=== PATIENT | male | born 1985 | race Two or more races ===

== ENCOUNTER 2024-10-21 17:46 | Inpatient (IN) | payer MEDICAID, OTHER ==
[~2024-10-21] VITALS: Ht 180.3 cm; Wt 71.4 kg
[2024-10-21] MEDS ORDERED: VANCOMYCIN PER PHARMACY 0 MG IV SCH ×2 (18:30→20:00)
[2024-10-21] MEDS: PIPERACILLIN-TAZOB 3.375GM 100 ML IV ONE (18:34)
[2024-10-21 19:00] LABS: Basophils # (auto) 0 10 ^3/uL (0-0.2); Eosinophils # (auto) 0.2 10 ^3/uL (0-0.8); Lymphocytes % (auto) 20.8 % (10.0-50.0); Platelet Count (auto) 349 10^3/uL (140-450)
[2024-10-21 19:02] LABS: Basophils % (auto) 0.4 % (0.0-2.0); Eosinophils % (auto) 1.6 % (0.0-7.0); Hematocrit 42.7 % (41.0-53.0); Lymphocytes # (auto) 2.2 10 ^3/uL (0.4-5.4); Mean Corpuscular Hemoglobin 26.9 pg (28.0-32.0); Mean Corpuscular Hgb Conc. 32.8 g/dL (32.0-36.0); Monocytes % (auto) 9.7 % (0.0-12.0); Neutrophils % (auto) 67.5 % (37.0-80.0); Red Cell Distribution Width 17.1 % (11.8-14.3); White Blood Cell 10.4 10^3/uL (4.4-10.8)
--- NOTE | 2024-10-21 19:20 | ED.PDOC ---
History of Present Illness(SKN HPI Comments DEEPTHI: HPI: Poor Historian. 39-year-old male presents to the emergency department for evaluation of three day history of a left medial upper thigh abscess that e xtends to his left buttock area and perineal area. There is noted some purulent oozing and discharge in the side. The area is firm and tender to palpation and indurated. Past Medcial History: Skin abscess Past Surgical History: Denies any Tobacco abuse REVIEW OF SYSTEMS: CONSTITUTIONAL: Denies acute: fever, diaphoresis, chills, generalized weakness. HEAD: Denies acute: headache, photophobia Eyes: Denies acute: Double vision, vision loss, eye pain, eye discharge. EARS: Denies acute: tinnitus, hearing loss, ear discharge, ear pain, THROAT: Denies acute: sore throat, swelling, difficulty swallowing , pain with swallowin g, change in voice. NECK: Denies acute: neck pain, neck swelling, stiff neck. HEART: Denies acute : chest pain, palpitations, LUNGS: Denies acute: SOB, wheezing, cough, hemoptysis ABDOMEN: Denies acute: abdominal pain, Nausea, Vomiting, diarrhea, melena , hematemesis, hematochezia SKIN: Denies acute: rash, itchiness. EXTREMITIES: Denies acute: calf pain, numbness, tingling, weakness, denies pain in extremity. Denies acute: Low back pain. Neuro: Denies acute: focal neurological deficit, motor or sensory focal neurological deficit, tremors, seizure like activity, confusion, dizziness, change in mental status, loss of bowel or bladder function, cauda equina like symptoms. : Denies acute: dysuria, hematuria, flank pain, increase in urinary frequency. PSYCH: Denies acute: hallucination, suicidal ideation, homicidal ideation. PHYSICAL EXAM: General: no acute distress, awake and alert. Head: normocephalic, atraumatic. Neck: supple, trachea is midline, no swelling. Throat: Normal phonation. Eyes:, no erythema, no purulent discharge, no proptosis, no icterus. Heart: regular rate, regular rhythm, no significant murmur appreciated. Lungs: no apparent respiratory distress, Able to speak in full sentences. No wheezing, no rhonchi, no crackles. No stridors Clear to auscultation bilaterally. Abdomen: non tender to palpation, non distended, soft, no guarding, no rebound, + bowel sounds. Evaluation of the groin area with the abscesses. There is noted left medial thigh abscess as mentioned in the HPI that is tender to palpation and swollen with some oozing of purulent content. The firm induration extends to the left perineal area and into the buttock region. Normal-appearing external male genitalia circumcised. Neuro: Awake, Alert, oriented to name, self, situation, follows commands GCS=15. Speech is normal. Skin: no petechia, no purpura, no cyanosis, non-pale, not jaundice. Lower extremities: --no - Pitting edema no deformity, no focal swelling, no calf TTP. Makes eye contact. moves all four extremities. Face: no apparent facial droop. Ambulating in the ED independently. Chief Complaint: Wound Check Time Seen by MD: 17:59 History of Present Illness: Nurses Notes, Medications, Allergies Allergies: Coded Allergies: NO KNOWN ALLERGIES (Unverified , 10/21/24) Home Meds Active Scripts Acetaminophen (Acetaminophen) 325 Mg Tab, 650 MG PO Q6HP PRN for 10 Days, #80 TAB Prov:MIGUEL ÁNGEL FRANCES RESIDENT 10/27/24 Information Source: Patient Mode of Arrival: Ambulatory Past Medical History PAST MEDICAL HISTORY: Denies Surgical History: Denies all surgeries Family History Family History: Unknown Social History Smoker: Non-Smoker Alcohol: Denies ETOH Use Drugs: Denies Drug Use Lives In: Home Was a procedure done? Was a procedure done?: No Differential Diagnosis (INTG) Abscess: Abscess, Bacteremia, Cellulitis, Erysipelas, Felon, Gas Gangrene X-Ray, Labs, Meds, VS Vital Signs Date Time Temp Pulse Resp B/P (MAP) Pulse Ox O2 Delivery O2 Flow Rate FiO2 10/21/24 18:39 Room Air* 0 21 10/21/24 18:38 98.2 99 17 135/81 (99) 99 98.2 10/21/24 18:00 98.2 100 16 135/81 (99) 97 Lab Test 10/21/24 18:36 Range/Units White Blood Count 10.4 4.4-10.8 10^3/uL Red Blood Count 5.20 4.5-5.90 10^6/uL Hemoglobin 14.0 13.5-17.5 g/dL Hematocrit 42.7 41.0-53.0 % Mean Corpuscular Volume 82.0 80.0-100.0 fL Mean Corpuscular Hemoglobin 26.9 L 28.0-32.0 pg Mean Corpuscular Hemoglobin Concent 32.8 32.0-36.0 g/dL Red Cell Distribution Width 17.1 H 11.8-14.3 % Platelet Count 349 140-450 10^3/uL Mean Platelet Volume 7.6 6.9-10.8 fL Neutrophils (%) (Auto) 67.5 37.0-80.0 % Lymphocytes (%) (Auto) 20.8 10.0-50.0 % Monocytes (%) (Auto) 9.7 0.0-12.0 % Eosinophils (%) (Auto) 1.6 0.0-7.0 % Basophils (%) (Auto) 0.4 0.0-2.0 % Neutrophils # (Auto) 7.0 1.6-8.6 10 ^3/uL Lymphocytes # (Auto) 2.2 0.4-5.4 10 ^3/uL Monocytes # (Auto) 1.0 0-1.3 10 ^3/uL Eosinophils # (Auto) 0.2 0-0.8 10 ^3/uL Basophils # (Auto) 0 0-0.2 10 ^3/uL Nucleated Red Blood Cells 0.0 % Prothrombin Time 11.0 9.3-11.8 sec Prothrombin Time INR 1.04 0.9-1.15 Activated Partial Thromboplast Time 27.3 24.5-34.5 SEC Sodium Level 140 136-145 mmol/L Potassium Level 3.4 L 3.5-5.1 mmol/L Chloride Level 105 98-107 mmol/L Carbon Dioxide Level 27 20-31 mmol/L Anion Gap 8 5-15 Blood Urea Nitrogen < 5 L 9-23 mg/dL Creatinine 0.88 0.700-1.30 mg/dL Glomerular Filtration Rate Calc 114 >90 mL/min BUN/Creatinine Ratio 5.7 L 10.0-20.0 Serum Glucose 101 74-106 mg/dL Lactic Acid Level 1.3 0.4-2.0 mmol/L Calcium Level 9.5 8.7-10.4 mg/dL Total Bilirubin 0.5 0.2-1.0 mg/dL Aspartate Amino Transferase (AST) 14 13-40 U/L Alanine Aminotransferase (ALT) 16 7-40 U/L Alkaline Phosphatase 95 46-116 U/L Total Protein 7.2 5.7-8.2 g/dL Albumin 4.2 3.2-4.8 g/dL Hepatitis B Surface Antigen Negative Negative Hepatitis C Antibody Negative Negative Microbiology Date/Time Source Procedure Growth Status 10/21/24 18:36 Blood Blood Culture - Final NO GROWTH AFTER 5 DAYS OF INCUBATION. Complete 10/21/24 18:36 Blood Blood Culture - Final NO GROWTH AFTER 5 DAYS OF INCUBATION. Complete [facility] [id number] [address] Ph: [phone] DIAGNOSTIC IMAGING Diagnostic Imaging Report : [id number] Signed PATIENT: INGRID LACEY ACCT: [id number] UNIT: [id number] : 1985 LOC: ER ROOM / BED: / AGE / SEX: 39 / M ADM STATUS: REG ER SERVICE 1800 ORDERING PHYSICIAN: CHIOMA EM DO PROCEDURE(s): PELCT - PELVIS WITH CONTRAST ONLY REASON: L medial thight/perineal abscess. ORDER NUMBER(s): [id number], ACCESSION NUMBER(s): [id number] Exam: CT PELVIS WITH CONTRAST ONLY History: L medial thight/perineal abscess. Comparison Study: None available at time of dictation. Technique: Multidetector CT of the pelvis was performed from iliac crests to pubic symphysis after the administration of intravenous contrast was administered during this examination. Portal venous imaging was obtained. Axial, coronal and sagittal multiplanar reformats were performed by the technologist on a separate workstation. Radiation Dose : CT Dose: CTDI volume is 18.03 mGy. Dose-length product is 841.46 mGy*cm Findings: Visualized bowel: No bowel wall thickening or dilatation. Ascites: Absent Lymphadenopathy: No pelvic or mesenteric lymphadenopathy. Vasculature: The visualized abdominal aorta is normal in size and caliber. Abdominal and pelvic vessels demonstrate normal enhancement. Pelvic Organs: Unremarkable Musculoskeletal: No acute osseous abnormality. Prominent lytic lesion in the greater trochanter of the right femur measuring 4.3 x 3.2 cm Bladder: Unremarkable Soft tissues: Inflammatory changes in the left gluteal tissue medially of the intergluteal fold with gas consistent with necrotizing fasciitis. IMPRESSION: 1. 4.3 x 3.2 cm lytic process in the greater trochanter of the proximal right femur suggestive of metastatic disease. 2. Inflammatory changes in the medial aspect of the left intergluteal fold with gas in the soft tissues suggesting necrotizing fasciitis. CRITICAL FINDINGS Critical Result: NECROTIZING FASCIITIS IN THE LEFT INTERGLUTEAL FOLD. Findings discussed with CHIOMA Escobar at 10/21/2024 08:01 PM, and acknowledged receipt and understanding of the findings. All CT scans at this medical facility are performed using dose modulation techniques as appropriate to a performed exam including the following: Automated exposure control was utilized; adjustment of the MA and/or KV according to patient size; and use of iterative reconstruction technique. ATED BY: ALF HOGAN Jr., DO DICTATED DATE/TIME: 10/21/242005 SIGNED BY: ALF HOGAN Jr., SIGNED DATE/TIME: 10/21/242005 CC: Time of 1ST Reevaluation: 20:08 (I just received a phone call from the radiologist of a critical finding on CT scan. Necrotizing fasciitis of the medial left thigh and medial gluteal fold. General surgery was consulted stat.) Reevaluation 1ST: Unchanged Time of 2ND Reevaluation: 20:16 (The case was discussed with the general surgery team (HPI, physical exam, labs and diagnostic tests that were available at the time of disposition, ED course, treatment plan) on the phone. They agreed to come evaluate this patient in the ED in approximately [address] He) Patient Education/Counseling: Diagnosis, Treatment Family Education/Counseling: No Family Present Comments Patient presented with the above HPI. Abscess workup was initiated. patient was found with the above mentioned diagnosis. the following medications were ordered: Acetaminophen, Zofran, restoril, hydrocodone, vancomycin, omnipaque, piperacillin the following tests were ordered: troponin, EKG, CXR, UA, lactic acid, CMP, CBC, BMP, PTPTT Patient ED course and VS have been stabilized. Patient has been reassessed in the ED and remained in a stable condition. Pertinent incidental findings were discussed with the patient and/or family. Patient/family voices understanding and is agreeable with plan. Patient has been observed in the ED adequate length of time to insure improvement/stability. general sx was consulted. Escalation of care considered: Consideration of escalation to observation or admission Patient was ADMITTED to the medicine team for further evaluation and treatment of their presentation. All the reports of any imaging studies that were ordered by myself were reviewed by myself. Departure 1 Departure Time of Disposition: 19:31 Impression: Primary Impression: Thigh abscess Additional Impressions: Perineal abscess Necrotizing fasciitis Disposition: ADMITTED INPATIENT Admit to: Tele Condition: Guarded e-Prescriptions Acetaminophen (Acetaminophen) 325 Mg Tab 650 MG PO Q6HP PRN for 10 Days, #80 TAB Prov: MIGUEL ÁNGEL FRANCES RESIDENT 10/27/24 Discharged With: Self Critical Care Note Critical Care Time?: Yes (55 min-critical care time only) I personally scribed for CHIOMA EM DO ([email or web address]) on 10/21/24 at 20:48. Electronically submitted by Nick Peoples ([email or web address]). I personally scribed for CHIOMA EM DO ([email or web address]) on 10/22/24 at 00:18. Electronically submitted by Nick Peoples ([email or web address]). CHIOMA EM DO Oct 21, 2024 19:20
[2024-10-21 19:28] LABS: Alanine Aminotransferase 16 U/L (7-40); Albumin 4.2 g/dL (3.2-4.8); Alkaline Phosphatase 95 U/L (46-116); Anion Gap 8 (5-15); Aspartate Aminotransferase 14 U/L (13-40); Bilirubin, Total 0.5 mg/dL (0.2-1.0); Calcium 9.5 mg/dL (8.7-10.4); Carbon Dioxide 27 mmol/L (20-31); Chloride 105 mmol/L (98-107); Glucose 101 mg/dL (74-106); Sodium 140 mmol/L (136-145)
[2024-10-21 19:29] LABS: Total Protein 7.2 g/dL (5.7-8.2)
[2024-10-21] MEDS: IOHEXOL 300 MG/ML 100ML BOTTLE IJ ONE (19:33)
[2024-10-21 19:43] LABS: Potassium 3.4 mmol/L (3.5-5.1)
[2024-10-21 19:48] LABS: BUN/Creatinine Ratio 5.7 (10.0-20.0); Blood Urea Nitrogen < 5 mg/dL (9-23)
[2024-10-21] MEDS ORDERED: ACETAMINOPHEN 325 MG TAB PO PRN (20:00)
[2024-10-21] MEDS ORDERED: TEMAZEPAM 15 MG CAP PO PRN (20:00)
--- NOTE | 2024-10-21 20:09 | DVH ---
Exam: CT PELVIS WITH CONTRAST ONLY History: L medial thight/perineal abscess. Comparison Study: None available at time of dictation. Technique: Multidetector CT of the pelvis was performed from iliac crests to pubic symphysis after th e administration of intravenous contrast was administered during this examination. Portal venous imag ing was obtained. Axial, coronal and sagittal multiplanar reformats were performed by the technWatchfinderis t on a separate workstation. Radiation Dose : CT Dose: CTDI volume is 18.03 mGy. Dose-length product is 841.46 mGy*cm Findings: Visualized bowel: No bowel wall thickening or dilatation. Ascites: Absent Lymphadenopathy: No pelvic or mesenteric lymphadenopathy. Vasculature: The visualized abdominal aorta is normal in size and caliber. Abdominal and pelvic vesse ls demonstrate normal enhancement. Pelvic Organs: Unremarkable Musculoskeletal: No acute osseous abnormality. Prominent lytic lesion in the greater trochanter of th e right femur measuring 4.3 x 3.2 cm Bladder: Unremarkable Soft tissues: Inflammatory changes in the left gluteal tissue medially of the intergluteal fold with gas consistent with necrotizing fasciitis. IMPRESSION: 1. 4.3 x 3.2 cm lytic process in the greater trochanter of the proximal right femur suggestive of met astatic disease. 2. Inflammatory changes in the medial aspect of the left intergluteal fold with gas in the soft tissu es suggesting necrotizing fasciitis. CRITICAL FINDINGS Critical Result: NECROTIZING FASCIITIS IN THE LEFT INTERGLUTEAL FOLD. Findings discussed with CHIOMA Escobar at 10/21/2024 08:01 PM, and acknowledged receipt and understa nding of the findings. All CT scans at this medical facility are performed using dose modulation techniques as appropriate t o a performed exam including the following: Automated exposure control was utilized; adjustment of th e MA and/or KV according to patient size; and use of iterative reconstruction technique.
[2024-10-21 20:51] LABS: INR 1.04 (0.9-1.15); Partial Thromboplastin Time 27.3 SEC (24.5-34.5)
--- NOTE | 2024-10-21 21:16 | DVHINCON2 ---
Consultation - Surgical Date Seen: Oct 21, 2024 Referring Physician Referring Physician ER Reason for Consultation left sonny anal abscess History of Present Illness History of Present Illness 39-year-old male presents to the emergency department for evaluation of three day history of a left medial upper thigh abscess that extends to his left buttock area and perineal area. Patient states over the last 24 hours has started to drain. In he had some symptomatic relief with that. He has had this happened in the past which required I and D. he denies any anal sex. He denies any constipation he does have some diarrhea occasio edward. No diabetes. he has a tobacco smoker. Past Medical/Surgical History Past Medical/Surgical History History of perirectal perianal abscess Family and Social History Family and Social History Smokes cigars daily. Occasional alcohol use Allergies and medications Allergies: Coded Allergies: NO KNOWN ALLERGIES (Unverified , 10/21/24) Review of systems Review of Systems: HEENT:Normal, CVS:Normal, RESPIRATORY:Normal, GI:Normal, :Normal, MSK:Normal, NEURO:Normal Examination Vital signs Vital Signs Date Time Temp Pulse Resp B/P (MAP) Pulse Ox O2 Delivery O2 Flow Rate FiO2 10/21/24 18:39 Room Air* 0 21 10/21/24 18:38 98.2 99 17 135/81 (99) 99 98.2 Medications Current Medications Medications (Trade) Dose Ordered Sig/Julio Route PRN Reason Start Time Stop Time Status Last Admin Vancomycin HCl 0 ml @ 0 mls/hr UD IV 10/21/24 18:30 10/21/24 20:40 DC Vancomycin HCl 0 ml @ 0 mls/hr UD IV 10/21/24 20:00 Acetaminophen/ Hydrocodone Bitart ([place] 5/325MG Tab) 1 tab Q4HP PRN PO MODERATE PAIN (4-6 PAIN SCALE) 10/21/24 20:00 Temazepam (Restoril) 15 mg QHSP PRN PO FOR INSOMNIA 10/21/24 20:00 Ondansetron HCl (Zofran) 4 mg Q4HP PRN IV NAUSEA / VOMITING 10/21/24 20:00 Acetaminophen (Tylenol Tablet) 650 mg Q6HP PRN PO PAIN SCALE 1-3 OR TEMP>100.4 10/21/24 20:00 Laboratory Labs Test 10/21/24 18:36 Range/Units White Blood Count 10.4 4.4-10.8 10^3/uL Red Blood Count 5.20 4.5-5.90 10^6/uL Hemoglobin 14.0 13.5-17.5 g/dL Hematocrit 42.7 41.0-53.0 % Mean Corpuscular Volume 82.0 80.0-100.0 fL Mean Corpuscular Hemoglobin 26.9 L 28.0-32.0 pg Mean Corpuscular Hemoglobin Concent 32.8 32.0-36.0 g/dL Red Cell Distribution Width 17.1 H 11.8-14.3 % Platelet Count 349 140-450 10^3/uL Mean Platelet Volume 7.6 6.9-10.8 fL Neutrophils (%) (Auto) 67.5 37.0-80.0 % Lymphocytes (%) (Auto) 20.8 10.0-50.0 % Monocytes (%) (Auto) 9.7 0.0-12.0 % Eosinophils (%) (Auto) 1.6 0.0-7.0 % Basophils (%) (Auto) 0.4 0.0-2.0 % Neutrophils # (Auto) 7.0 1.6-8.6 10 ^3/uL Lymphocytes # (Auto) 2.2 0.4-5.4 10 ^3/uL Monocytes # (Auto) 1.0 0-1.3 10 ^3/uL Eosinophils # (Auto) 0.2 0-0.8 10 ^3/uL Basophils # (Auto) 0 0-0.2 10 ^3/uL Nucleated Red Blood Cells 0.0 % Prothrombin Time 11.0 9.3-11.8 sec Prothrombin Time INR 1.04 0.9-1.15 Activated Partial Thromboplast Time 27.3 24.5-34.5 SEC Sodium Level 140 136-145 mmol/L Potassium Level 3.4 L 3.5-5.1 mmol/L Chloride Level 105 98-107 mmol/L Carbon Dioxide Level 27 20-31 mmol/L Anion Gap 8 5-15 Blood Urea Nitrogen < 5 L 9-23 mg/dL Creatinine 0.88 0.700-1.30 mg/dL Glomerular Filtration Rate Calc 114 >90 mL/min BUN/Creatinine Ratio 5.7 L 10.0-20.0 Serum Glucose 101 74-106 mg/dL Lactic Acid Level 1.3 0.4-2.0 mmol/L Calcium Level 9.5 8.7-10.4 mg/dL Total Bilirubin 0.5 0.2-1.0 mg/dL Aspartate Amino Transferase (AST) 14 13-40 U/L Alanine Aminotransferase (ALT) 16 7-40 U/L Alkaline Phosphatase 95 46-116 U/L Total Protein 7.2 5.7-8.2 g/dL Albumin 4.2 3.2-4.8 g/dL History: L medial thight/perineal abscess. Comparison Study: None available at time of dictation. Technique: Multidetector CT of the pelvis was performed from iliac crests to pubic symphysis after the administration of intravenous contrast was administered during this examination. Portal venous imaging was obtained. Axial, coronal and sagittal multiplanar reformats were performed by the technologist on a separate workstation. Radiation Dose : CT Dose: CTDI volume is 18.03 mGy. Dose-length product is 841.46 mGy*cm Findings: Visualized bowel: No bowel wall thickening or dilatation. Ascites: Absent Lymphadenopathy: No pelvic or mesenteric lymphadenopathy. Vasculature: The visualized abdominal aorta is normal in size and caliber. Abdominal and pelvic vessels demonstrate normal enhancement. Pelvic Organs: Unremarkable Musculoskeletal: No acute osseous abnormality. Prominent lytic lesion in the greater trochanter of the right femur measuring 4.3 x 3.2 cm Bladder: Unremarkable Soft tissues: Inflammatory changes in the left gluteal tissue medially of the intergluteal fold with gas consistent with necrotizing fasciitis. IMPRESSION: 1. 4.3 x 3.2 cm lytic process in the greater trochanter of the proximal right femur suggestive of metastatic disease. 2. Inflammatory changes in the medial aspect of the left intergluteal fold with gas in the soft tissues suggesting necrotizing fasciitis. CRITICAL FINDINGS Critical Result: NECROTIZING FASCIITIS IN THE LEFT INTERGLUTEAL FOLD. Findings discussed with CHIOMA Escobar at 10/21/2024 08:01 PM, and acknowledged receipt and understanding of the findings. All CT scans at this medical facility are performed using dose modulation techniques as appropriate to a performed exam including the following: Automated exposure control was utilized; adjustment of the MA and/or KV according to patie nt size; and use of iterative reconstruction technique. Examination: GENERAL:Normal, HEENT:Normal, NECK:Normal, LUNGS:Normal, CVS:Normal, ABDOMEN:Normal, MSK:Normal, MSK:Abnormal (Left gluteal/perianal area draining indurated area. Tender to the touch. Rectal exam refused), SKIN:Normal, NEURO:Normal, :Normal Problem List/Assessment/Plan Problems: (1) Perineal abscess (2) Thigh abscess Assessment and Plan 39-year-old male with left perineal abscess draining. NPO IV antibiotics Incision and drainage October 22, 2024. Plan discussed with Plan discussed with: Patient Visit Coding Surgery Date of Service if different f: Oct 21, 2024 Billing Provider: KAI TYSON Jr., MD Surgery Visit Codes: 15546 - INP CONSULT <80 MIN KAI TYSON Jr., MD Oct 21, 2024 21:16
[2024-10-21 21:36] VITALS: BP 130/80; PULSE 80; RESP 18; TEMP 98.3; O2SAT 100
[2024-10-22] MEDS: VANCOMYCIN 1.5GM/300ML 300 ML IV ONE (00:12)
--- NOTE | 2024-10-22 04:16 | DVHHP2 ---
History of Present Illness Reason for Visit: Abscess History of Present Illness 39-year-old male presents for evaluation of abscess. Patient reports a three day history of noticing an abscess to his left upper thigh/perianal. He reports that yesterday he felt the abscess pop and has been having purulent discharge since then. Denies fever or chills. He reports having a history of this in the past and required an I and D. denies any other acute complaints at the moment. Past Medical History Denies Past Surgical History Denies Family History Noncontributory Smoke: <1 pack per day ALCOHOL: occassional Drugs: None Lives: with Family Review of Systems Review of Systems Review of systems are currently negative otherwise addressed in HPI. Allergies: Coded Allergies: NO KNOWN ALLERGIES (Unverified , 10/21/24) Medications Current Medications Medications Dose Ordered Sig/Julio Route Start Time Stop Time Status Last Admin Dose Admin Vancomycin HCl 0 ml @ 0 mls/hr UD IV 10/21/24 20:00 Acetaminophen/ Hydrocodone Bitart 1 tab Q4HP PRN PO 10/21/24 20:00 Temazepam 15 mg QHSP PRN PO 10/21/24 20:00 Ondansetron HCl 4 mg Q4HP PRN IV 10/21/24 20:00 Acetaminophen 650 mg Q6HP PRN PO 10/21/24 20:00 Exam Vital Signs Vital Signs Date Time Temp Pulse Resp B/P (MAP) Pulse Ox O2 Delivery O2 Flow Rate FiO2 10/21/24 21:36 80 18 100 Room Air* 0 21 10/21/24 21:36 98.3 130/80 (97) 98.3 Exam Gen: 39-year-old male in mild distress Skin: Warm, dry, normal color and texture, no rash. HEENT: Normocephalic atraumatic, mucous membranes moist and pink. Neck: Cervical and supraclavicular nodes normal without enlargement, trachea is midline, thyroid gland is normal without masses. Pulmonary: Clear to auscultation and percussion bilaterally. Cardiac: Regular rate and rhythm. No murmur Abdomen: Soft, nontender, nondistended, bowel sounds present all 4 quadrants, no guarding, no rigidity, no organomegaly. Extremities: No cyanosis, clubbing, left upper thigh/perianal abscess Neuro: Cranial nerves II through XII grossly intact, normal affect and speech, no focal motor deficits. Labs/Xrays ORDERING PHYSICIAN: CHIOMA EM DO PROCEDURE(s): PELCT - PELVIS WITH CONTRAST ONLY REASON: L medial thight/perineal abscess. ORDER NUMBER(s): [id number], ACCESSION NUMBER(s): [id number] Exam: CT PELVIS WITH CONTRAST ONLY History: L medial thight/perineal abscess. Comparison Study: None available at time of dictation. Technique: Multidetector CT of the pelvis was performed from iliac crests to pubic symphysis after the administration of intravenous contrast was administered during this examination. Portal venous imaging was obtained. Axial, coronal and sagittal multiplanar reformats were performed by the technologist on a separate workstation. Radiation Dose : CT Dose: CTDI volume is 18.03 mGy. Dose-length product is 841.46 mGy*cm Findings: Visualized bowel: No bowel wall thickening or dilatation. Ascites: Absent Lymphadenopathy: No pelvic or mesenteric lymphadenopathy. Vasculature: The visualized abdominal aorta is normal in size and caliber. Abdominal and pelvic vessels demonstrate normal enhancement. Pelvic Organs: Unremarkable Musculoskeletal: No acute osseous abnormality. Prominent lytic lesion in the greater trochanter of the right femur measuring 4.3 x 3.2 cm Bladder: Unremarkable Soft tissues: Inflammatory changes in the left gluteal tissue medially of the in tergluteal fold with gas consistent with necrotizing fasciitis. IMPRESSION: 1. 4.3 x 3.2 cm lytic process in the greater trochanter of the proximal right femur suggestive of metastatic disease. 2. Inflammatory changes in the medial aspect of the left intergluteal fold with gas in the soft tissues suggesting necrotizing fasciitis. CRITICAL FINDINGS Critical Result: NECROTIZING FASCIITIS IN THE LEFT INTERGLUTEAL FOLD. Findings discussed with CHIOMA Escobar at 10/21/2024 08:01 PM, and acknowledged receipt and understanding of the findings. All CT scans at this medical facility are performed using dose modulation techniques as appropriate to a performed exam including the following: Automated exposure control was utilized; adjustment of the MA and/or KV according to patient size; and use of iterative reconstruction technique. Labs Test 10/21/24 18:36 Range/Units White Blood Count 10.4 4.4-10.8 10^3/uL Red Blood Count 5.20 4.5-5.90 10^6/uL Hemoglobin 14.0 13.5-17.5 g/dL Hematocrit 42.7 41.0-53.0 % Mean Corpuscular Volume 82.0 80.0-100.0 fL Mean Corpuscular Hemoglobin 26.9 L 28.0-32.0 pg Mean Corpuscular Hemoglobin Concent 32.8 32.0-36.0 g/dL Red Cell Distribution Width 17.1 H 11.8-14.3 % Platelet Count 349 140-450 10^3/uL Mean Platelet Volume 7.6 6.9-10.8 fL Neutrophils (%) (Auto) 67.5 37.0-80.0 % Lymphocytes (%) (Auto) 20.8 10.0-50.0 % Monocytes (%) (Auto) 9.7 0.0-12.0 % Eosinophils (%) (Auto) 1.6 0.0-7.0 % Basophils (%) (Auto) 0.4 0.0-2.0 % Neutrophils # (Auto) 7.0 1.6-8.6 10 ^3/uL Lymphocytes # (Auto) 2.2 0.4-5.4 10 ^3/uL Monocytes # (Auto) 1.0 0-1.3 10 ^3/uL Eosinophils # (Auto) 0.2 0-0.8 10 ^3/uL Basophils # (Auto) 0 0-0.2 10 ^3/uL Nucleated Red Blood Cells 0.0 % Prothrombin Time 11.0 9.3-11.8 sec Prothrombin Time INR 1.04 0.9-1.15 Activated Partial Thromboplast Time 27.3 24.5-34.5 SEC Sodium Level 140 136-145 mmol/L Potassium Level 3.4 L 3.5-5.1 mmol/L Chloride Level 105 98-107 mmol/L Carbon Dioxide Level 27 20-31 mmol/L Anion Gap 8 5-15 Blood Urea Nitrogen < 5 L 9-23 mg/dL Creatinine 0.88 0.700-1.30 mg/dL Glomerular Filtration Rate Calc 114 >90 mL/min BUN/Creatinine Ratio 5.7 L 10.0-20.0 Serum Glucose 101 74-106 mg/dL Lactic Acid Level 1.3 0.4-2.0 mmol/L Calcium Level 9.5 8.7-10.4 mg/dL Total Bilirubin 0.5 0.2-1.0 mg/dL Aspartate Amino Transferase (AST) 14 13-40 U/L Alanine Aminotransferase (ALT) 16 7-40 U/L Alkaline Phosphatase 95 46-116 U/L Total Protein 7.2 5.7-8.2 g/dL Albumin 4.2 3.2-4.8 g/dL Assessment/Plan Assessment/Plan Assessment Left perianal abscess Plan Admit the patient to [facility] to the hospitalist NPO Surgical consultation Vancomycin Pain management Continue treatment per orders. Plan discussed with: Patient My Orders Orders - KATERIN CAMARENA Procedure Category Date Status Time Vancomycin Per PHA 10/21/24 In Process Pharmacy 20:00 Basic Metabolic Panel LAB 10/22/24 Logged 04:00 Admit ADMIT 10/21/24 Transmitted 19:47 Hydrocodone-Acet PHA 10/21/24 In Process 5/325mg Tab ([place] 20:00 Temazepam (Restoril) PHA 10/21/24 In Process 20:00 Ondansetron Hcl PHA 10/21/24 In Process (Zofran) 20:00 Complete Blood Count LAB 10/22/24 Logged 04:00 Condition: Stable ALESSANDRO 10/21/24 In Process 19:47 Acetaminophen Tablet PHA 10/21/24 In Process (Tylenol Tablet) 20:00 Bedrest With Bathroom ALESSANDRO 10/21/24 In Process Privileg 19:47 * Surgical Consult CONS 10/21/24 Transmitted Education - Smoking ALESSANDRO 10/21/24 In Process Cessation 23:17 * Smoking Cessation CONS 10/21/24 Transmitted Consult 23:17 Hepatitis B Surface LAB 10/21/24 In Process Antigen 23:17 Hepatitis C Antibody LAB 10/21/24 In Process 23:17 Date of Service: Oct 21, 2024 Billing Provider: KATERIN CAMARENA Common Visit Codes: [id number] INP/OBS CARE (MOD) KATERIN CAMARENA Oct 22, 2024 04:16
[2024-10-22 06:23] LABS: Basophils # (auto) 0 10 ^3/uL (0-0.2); Basophils % (auto) 0.6 % (0.0-2.0); Eosinophils # (auto) 0.2 10 ^3/uL (0-0.8); Eosinophils % (auto) 2.6 % (0.0-7.0); Hematocrit 42.3 % (41.0-53.0); Hemoglobin 14.1 g/dL (13.5-17.5); Lymphocytes % (auto) 26.9 % (10.0-50.0); Mean Corpuscular Hemoglobin 27.2 pg (28.0-32.0); Mean Corpuscular Hgb Conc. 33.3 g/dL (32.0-36.0); Mean Corpuscular Volume 81.5 fL (80.0-100.0); Monocytes # (auto) 1.2 10 ^3/uL (0-1.3); Monocytes % (auto) 16.7 % (0.0-12.0); Neutrophils # (auto) 3.9 10 ^3/uL (1.6-8.6); Neutrophils % (auto) 53.2 % (37.0-80.0); Nucleated Red Blood Cells % 0.1 %; Platelet Count (auto) 311 10^3/uL (140-450); Red Blood Cells 5.19 10^6/uL (4.5-5.90); Red Cell Distribution Width 17.1 % (11.8-14.3); White Blood Cell 7.4 10^3/uL (4.4-10.8)
[2024-10-22 06:27] LABS: Potassium 3.7 mmol/L (3.5-5.1); Sodium 139 mmol/L (136-145)
[2024-10-22 06:28] LABS: Anion Gap 3 (5-15); Calcium 9.5 mg/dL (8.7-10.4); Carbon Dioxide 28 mmol/L (20-31)
[2024-10-22 06:33] LABS: Glucose 94 mg/dL (74-106)
[2024-10-22 06:42] LABS: Blood Urea Nitrogen 6 mg/dL (9-23); Chloride 108 mmol/L (98-107)
[2024-10-22] MEDS: ceFAZolin 2 GM/D5W100ml 100 ML IV ONE (08:15)
[2024-10-22] MEDS ORDERED: PROPOFOL 10 MG/ML 20 ML IV ONE (08:42)
[2024-10-22] MEDS ORDERED: LIDOCAINE 1% INJ PF 5ML AMP ONE (09:04)
[2024-10-22] MEDS ORDERED: HYDROmorphone HCL 2 MG/ML VL/or syr ONE (09:14)
[2024-10-22] MEDS ORDERED: diphenhdrAMINE HCL 50 MG/1 ML VL ONE (09:19)
[2024-10-22] MEDS ORDERED: KETOROLAC TROMETH 30 MG/ML 1ML VIAL ONE (09:19)
[2024-10-22] MEDS ORDERED: ONDANSETRON HCL 4 MG/2 ML VIAL ONE (09:19)
[2024-10-22 09:39] VITALS: PULSE 72; RESP 9; O2SAT 100
--- NOTE | 2024-10-22 09:49 | DVHOP ---
DATE OF SURGERY: 10/22/2024 PREOPERATIVE DIAGNOSIS: Perirectal and thigh abscess. POSTOPERATIVE DIAGNOSES: Perirectal and thigh abscess plus hidradenitis. PROCEDURE: Incision and drainage of multiple abscesses in the perianal skin, posterior upper thigh and buttock. The patient was presenting with an abscess of several days' duration. DESCRIPTION OF PROCEDURE: On examination under anesthesia, he has evidence of hidradenitis suppurativa with extensive scarring of the perianal and posterior thigh's skin. Multiple acute abscesses were drained and pus was sent for cultures and sensitivities. The wounds were irrigated with pulse lavage and packed with iodoform gauze. The patient remained stable throughout the procedure, left the operating room following an accurate needle and sponge count. His Blanca was thoroughly informed at [phone]. On questioning the , she stated that he has been having recurring infections for several years. I explained to her that no definitive operation can be done while the acute infection, and that eventually if he would become a candidate for elective operation, would probably needs to be done by a plastic surgeon. MD PUMA Orr/ISIS TID: [id number] RECEIPT: [id number]
[2024-10-22] MEDS: BUPIVACAINE 0.5% P/F INJ 10 ML VIAL ONE (09:51)
[2024-10-22] MEDS ORDERED: VANCOMYCIN 1GM/250ML KIT 250 ML IV SCH (10:00)
[2024-10-22] MEDS ORDERED: MORPHINE SULFATE 4 MG/ML SYR/VIAL IV PRN (10:00)
[2024-10-22] MEDS ORDERED: HYDROmorphone HCL 2 MG/ML VL/or syr IV PRN ×2 (10:00)
[2024-10-22] MEDS ORDERED: MEROPENEM 1GM IVPB 50 ML IV ONE (10:45)
[2024-10-22] MEDS ORDERED: MEROPENEM 1GM IVPB 50 ML IV SCH (14:00)
[2024-10-22] MEDS: ONDANSETRON HCL 4 MG/2 ML VIAL IV ONE (14:08)
[2024-10-22] MEDS: LIDOCAINE W/ EPINEPHRINE 1% 20ML VIAL ONE (14:08)
--- NOTE | 2024-10-22 14:25 | DVHPNRES ---
Progress Note Date Seen: Oct 22, 2024 Resident Creating Document: MIGUEL ÁNGEL FRANCES RESIDENT Has the PT tested + for MRSA If YES, has PT been informed?: No Medical Necessity Reason Pt with a Central, PICC or Fol: No Subjective Review of Systems 39-year-old male presents for evaluation of abscess. Patient reports a three day history of noticing an abscess to his left upper thigh/perianal. He reports that yesterday he felt the abscess pop and has been having purulent discharge since then. Denies fever or chills. He reports having a history of this in the past and required an I and D. denies any other acute complaints at the moment. Objective vital signs Vital Sign Date Time Temp Pulse Resp B/P (MAP) Pulse Ox O2 Delivery O2 Flow Rate FiO2 10/22/24 13:09 70 15 135/71 (92) 97 10/22/24 10:59 Room Air 0 10/22/24 09:39 97.5 97.5 10/21/24 21:36 21 Total Intake and Output 10/21/24 10/21/24 10/22/24 15:00 23:00 07:00 Intake Total 0 ml Balance 0 ml medications Current Medications Medications Dose Ordered Sig/Julio Route Start Time Stop Time Status Last Admin Dose Admin Acetaminophen/ Hydrocodone Bitart 1 tab Q4HP PRN PO 10/21/24 20:00 Temazepam 15 mg QHSP PRN PO 10/21/24 20:00 Ondansetron HCl 4 mg Q4HP PRN IV 10/21/24 20:00 Acetaminophen 650 mg Q6HP PRN PO 10/21/24 20:00 Sodium Chloride 1,000 ml @ 100 mls/hr Q10H IV 10/22/24 10:45 Cefazolin Sodium 50 ml @ 100 mls/hr Q8HR IV 10/22/24 17:00 UNV Examination Gen: 39-year-old male in mild distress Skin: Warm, dry, normal color and texture, no rash. HEENT: Normocephalic atraumatic, mucous membranes moist and pink. Neck: Cervical and supraclavicular nodes normal without enlargement, trachea is midline, thyroid gland is normal without masses. Pulmonary: Clear to auscultation and percussion bilaterally. Cardiac: Regular rate and rhythm. No murmur Abdomen: Soft, nontender, nondistended, bowel sounds present all 4 quadrants, no guarding, no rigidity, no organomegaly. G/U wound covered without bleeding or supuration Extremities: No cyanosis, clubbing, left upper thigh/perianal abscess Neuro: Cranial nerves II through XII grossly intact, normal affect and speech, no focal motor deficits. laboratory and microbiology Laboratory Tests 10/22/24 05:52 Test 10/22/24 05:52 Range/Units Serum Glucose 94 74-106 mg/dL Problem List/Assessment/Plan Problem List/Assessment/Plan #Inflammatory changes in the medial aspect of the left intergluteal fold with gas in the soft tissues suggesting necrotizing fasciitis. #Perirectal and thigh abscess plus hidradenitis. #s/p Incision and drainage of multiple abscesses in the perianal skin, posterior upper thigh and buttock #4.3 x 3.2 cm lytic process in the greater trochanter of the proximal right femur suggestive of metastatic disease. Plan Regular diet Cefazolin per Surgery IV fluids 100 cc/h Pain control Pending surgery consult due to findings of lytic process Case discussed with Dr Brennan Time spent on care 23 min Plan discussed with: Patient, Other (rn) My Orders My Orders Orders - MIGUEL ÁNGEL FRANCES Procedure Category Date Status Time Sodium Chloride 0.9% PHA 10/22/24 In Process 10:45 Date of Service: Oct 22, 2024 Billing Provider: JONNATHAN BRENNAN MD Common Visit Codes: [id number] INP/OBS CARE(HIGH) MIGUEL ÁNGEL FRANCES RESIDENT Oct 22, 2024 14:25 JONNATHAN BRENNAN MD Oct 24, 2024 07:24
[2024-10-22 17:00] VITALS: BP_SYST 112; BP_SYST 120; BP_DIAS 52; BP_DIAS 70; PULSE 75; PULSE 87; RESP 18; TEMP 97.8; TEMP 97.9; O2SAT 97
[2024-10-22] MEDS: SODIUM CHLORIDE 0.9% 1,000 ML IV SCH (17:22)
[2024-10-22] MEDS: ceFAZolin 1GM/50ML 50 ML IV SCH (17:22)
[2024-10-22 20:10] VITALS: O2SAT 97
[2024-10-22 21:00] VITALS: BP 130/75; PULSE 93; RESP 19; TEMP 99.2; O2SAT 96
[2024-10-22 23:58] LABS: Urine Bacteria None Seen /hpf (None Seen)
[2024-10-23] VITALS (7 sets, daily range): BP systolic 124–156; BP diastolic 75–92; PULSE 70–84; RESP 18–20; TEMP 97.9–98.8; O2SAT 94–100
[2024-10-23 00:08] LABS: Urine Blood TRACE /uL (Negative); Urine Clarity Clear (Clear); Urine Color Yellow (Yellow); Urine Mucus FEW (None Seen); Urine Protein, UAD TRACE (Negative); Urine Specific Gravity 1.025 (1.001-1.035); Urine Squamous Epithelial Cell FEW /hpf (<5); Urine Urobilinogen Normal (Negative); Urine WBC 7 /HPF (0-3)
[2024-10-23] MEDS: HYDROcodone-ACET 5/325MG TAB PO PRN (05:41)
[2024-10-23 06:01] LABS: Basophils # (auto) 0.1 10 ^3/uL (0-0.2); Basophils % (auto) 0.6 % (0.0-2.0); Eosinophils # (auto) 0.2 10 ^3/uL (0-0.8); Eosinophils % (auto) 2.1 % (0.0-7.0); Hematocrit 40.2 % (41.0-53.0); Hemoglobin 13.1 g/dL (13.5-17.5); Lymphocytes # (auto) 2.4 10 ^3/uL (0.4-5.4); Lymphocytes % (auto) 28.4 % (10.0-50.0); Mean Corpuscular Hemoglobin 26.8 pg (28.0-32.0); Mean Corpuscular Hgb Conc. 32.7 g/dL (32.0-36.0); Mean Corpuscular Volume 81.9 fL (80.0-100.0); Monocytes # (auto) 0.9 10 ^3/uL (0-1.3); Monocytes % (auto) 11.1 % (0.0-12.0); Neutrophils # (auto) 4.9 10 ^3/uL (1.6-8.6); Neutrophils % (auto) 57.8 % (37.0-80.0); Platelet Count (auto) 306 10^3/uL (140-450); Red Blood Cells 4.91 10^6/uL (4.5-5.90); Red Cell Distribution Width 16.8 % (11.8-14.3); White Blood Cell 8.5 10^3/uL (4.4-10.8)
[2024-10-23 06:24] LABS: Alanine Aminotransferase 10 U/L (7-40); Albumin 3.4 g/dL (3.2-4.8); Alkaline Phosphatase 80 U/L (46-116); Anion Gap 6 (5-15); Carbon Dioxide 24 mmol/L (20-31); Glucose 89 mg/dL (74-106); Sodium 140 mmol/L (136-145)
[2024-10-23 06:25] LABS: Aspartate Aminotransferase 13 U/L (13-40); Bilirubin, Total 0.4 mg/dL (0.2-1.0); Blood Urea Nitrogen 6 mg/dL (9-23); Chloride 110 mmol/L (98-107)
[2024-10-23 09:27] LABS: Hepatitis B Surface Antigen Negative (Negative); Hepatitis C Antibody Negative (Negative)
--- NOTE | 2024-10-23 10:34 | DVHPN2 ---
Progress Note Date Seen: Oct 23, 2024 Has the PT tested + for MRSA If YES, has PT been informed?: No Medical Necessity Reason Pt with a Central, PICC or Fol: No Objective vital signs Vital Sign Date Time Temp Pulse Resp B/P (MAP) Pulse Ox O2 Delivery O2 Flow Rate FiO2 10/23/24 05:00 97.9 81 18 135/80 (98) 97 97.9 10/22/24 20:10 Room Air* 0 21 Total Intake and Output 10/22/24 10/22/24 10/23/24 15:00 23:00 07:00 Intake Total 100 ml 300 ml 1900 ml Balance 100 ml 300 ml 1900 ml medications Current Medications Medications Dose Ordered Sig/Julio Route Start Time Stop Time Status Last Admin Dose Admin Acetaminophen/ Hydrocodone Bitart 1 tab Q4HP PRN PO 10/21/24 20:00 10/23/24 05:41 1 TAB Temazepam 15 mg QHSP PRN PO 10/21/24 20:00 Ondansetron HCl 4 mg Q4HP PRN IV 10/21/24 20:00 Acetaminophen 650 mg Q6HP PRN PO 10/21/24 20:00 Sodium Chloride 1,000 ml @ 100 mls/hr Q10H IV 10/22/24 10:45 10/23/24 02:39 100 MLS/HR Cefazolin Sodium 50 ml @ 100 mls/hr Q8HR IV 10/22/24 17:00 10/23/24 05:35 100 MLS/HR laboratory and microbiology Laboratory Tests 10/23/24 05:35 Test 10/23/24 05:35 Range/Units Serum Glucose 89 74-106 mg/dL Problem List/Assessment/Plan Problem List/Assessment/Plan 10/23/24 afebrile, feels"so,so", explained that he has a chronic skin condition , AWAITING ORTHOPEDIC CONSULT REGARDING XRAY FINDINGS. Plan discussed with: Patient MARYJANE WILHELM MD Oct 23, 2024 10:34
--- NOTE | 2024-10-23 11:56 | DVH ---
CT CHEST, ABDOMEN AND PELVIS CLINICAL HISTORY: LYTIC LESION IN RIGHT FEMUR TECHNIQUE: Multiple contiguous axial images of the chest, abdomen and pelvis with intravenous contras t. The images were reformatted degenerate coronal and sagittal reconstructions. 100 cc of Omnipaque 300 contrast was injected intravenously. All CT scans at this medical facility are performed using dose modulation techniques as appropriate t o a performed exam including the following:Automated exposure control was utilized; adjustment of the MA and/or KV according to patient size; and use of iterative reconstruction technique. Radiation Dose Information: CT Dose: CTDI volume is 8.14 mGy. Dose-length product is 1168.81 mGy*cm FINDINGS: There is mild hazy ground-glass opacity with tree-in-bud nodular opacities in the posterior right upp er lobe. There is curvilinear scarring versus atelectasis in the bilateral posterior lung bases. Ther e is no pleural effusion or pneumothorax. There is no evidence of a mediastinal mass or lymphadenopathy. There is no hilar or axillary lymphad enopathy. The right thyroid lobe is heterogeneous with a 2.3 cm thyroid nodule. The heart size within normal limits. There is no pericardial effusion. The liver, gallbladder, pancreas, kidneys, adrenal glands, and spleen appear within normal limits. There is no evidence of abdominal lymphadenopathy. There is no free fluid or free air. The stomach grossly appears unremarkable.The small and large bowel loops demonstrate normal caliber a nd appear within normal limits. The abdominal aorta and IVC appear within normal limits. The bladder appears unremarkable. Pelvic organ appears within normal limits. There is no evidence o f a pelvic mass or lymphadenopathy. There is no free fluid collection. There are again inflammatory changes in the left medial intergluteal fold with foci of air and hyperd ense contents which May relate to packing. There is a 4 cm lucent lesion with irregular sclerotic margins in the right femur greater trochanter . IMPRESSION: 1. Nonspecific 4 cm lytic lesion with irregular sclerotic margins in the right femur greater trochant er. Further evaluation with bone scan is recommended. 2. Redemonstrated inflammatory changes in the left medial intergluteal fold with foci of air and hype rdense contents which May relate to packing. 3. Mild hazy ground-glass opacity with tree-in-bud nodular opacities in the posterior right upper lob e May relate to infectious / inflammatory changes. Clinical correlation and short-term CT follow-up study in 3-4 months is recommended. 4. Heterogeneous appearance of the right thyroid lobe with the 2.3 cm thyroid nodule. Dedicated thyr oid ultrasound is recommended. HS:Y
--- NOTE | 2024-10-23 19:32 | DVHPNRES ---
Progress Note Date Seen: Oct 23, 2024 Resident Creating Document: MIGUEL ÁNGEL FRANCES RESIDENT Has the PT tested + for MRSA If YES, has PT been informed?: No Medical Necessity Reason Pt with a Central, PICC or Fol: No Subjective Review of Systems 39-year-old male presents for evaluation of abscess. Patient reports a three day history of noticing an abscess to his left upper thigh/perianal. He reports that yesterday he felt the abscess pop and has been having purulent discharge since then. Denies fever or chills. He reports having a history of this in the past and required an I and D. denies any other acute complaints at the moment. Objective vital signs Vital Sign Date Time Temp Pulse Resp B/P (MAP) Pulse Ox O2 Delivery O2 Flow Rate FiO2 10/23/24 16:54 98.4 75 18 132/82 (99) 99 98.4 10/23/24 08:00 Room Air* 0 21 Total Intake and Output 10/22/24 10/22/24 10/23/24 15:00 23:00 07:00 Intake Total 100 ml 300 ml 1900 ml Balance 100 ml 300 ml 1900 ml medications Current Medications Medications Dose Ordered Sig/Julio Route Start Time Stop Time Status Last Admin Dose Admin Acetaminophen/ Hydrocodone Bitart 1 tab Q4HP PRN PO 10/21/24 20:00 10/23/24 12:04 1 TAB Temazepam 15 mg QHSP PRN PO 10/21/24 20:00 Ondansetron HCl 4 mg Q4HP PRN IV 10/21/24 20:00 Acetaminophen 650 mg Q6HP PRN PO 10/21/24 20:00 Sodium Chloride 1,000 ml @ 100 mls/hr Q10H IV 10/22/24 10:45 10/23/24 17:56 100 MLS/HR Cefazolin Sodium 50 ml @ 100 mls/hr Q8HR IV 10/22/24 17:00 10/23/24 14:17 100 MLS/HR Examination Gen: 39-year-old male in mild distress Skin: Warm, dry, normal color and texture, no rash. HEENT: Normocephalic atraumatic, mucous membranes moist and pink. Neck: Cervical and supraclavicular nodes normal without enlargement, trachea is midline, thyroid gland is normal without masses. Pulmonary: Clear to auscultation and percussion bilaterally. Cardiac: Regular rate and rhythm. No murmur Abdomen: Soft, nontender, nondistended, bowel sounds present all 4 quadrants, no guarding, no rigidity, no organomegaly. G/U wound covered without bleeding or supuration Extremities: No cyanosis, clubbing, left upper thigh/perianal abscess Neuro: Cranial nerves II through XII grossly intact, normal affect and speech, no focal motor deficits. laboratory and microbiology Laboratory Tests 10/23/24 05:35 Test 10/23/24 05:35 Range/Units Serum Glucose 89 74-106 mg/dL Microbiology Date/Time Source Procedure Growth Status 10/22/24 09:15 Other Left Gram Stain - Final Resulted 10/22/24 09:15 Other Left Anaerobic Culture - Preliminary Resulted 10/22/24 09:15 Other Left Aerobic Culture - Preliminary Resulted 10/21/24 18:36 Blood Blood Culture - Preliminary NO GROWTH AFTER 48 HOURS OF INCUBATION. Resulted Problem List/Assessment/Plan Problem List/Assessment/Plan #Inflammatory changes in the medial aspect of the left intergluteal fold with gas in the soft tissues suggesting necrotizing fasciitis. #Perirectal and thigh abscess plus hidradenitis. #s/p Incision and drainage of multiple abscesses in the perianal skin, posterior upper thigh and buttock #4.3 x 3.2 cm lytic process in the greater trochanter of the proximal right femur suggestive of metastatic disease. #Mild hazy ground-glass opacity with tree-in-bud nodular opacities in the posterior right upper lobe #Heterogeneous appearance of the right thyroid lobe with the 2.3 cm thyroid nodule Plan Regular diet Cefazolin per Surgery IV fluids 100 cc/h Pain control Pending ortho surgery consult due to findings of lytic process Pending new thyroid ultrasound TSH, HIV, ANAs, PSA ordered Case discussed with Dr Brennan Time spent on care 23 min Plan discussed with: Patient, Other (rn) My Orders My Orders Orders - MIGUEL ÁNGEL FRANCES Procedure Category Date Status Time * Orthopedic Consult CONS 10/23/24 Transmitted 08:30 Psa Total+% Free LAB 10/23/24 In Process 10:26 Chst Ab Pel W Wo CT 10/23/24 Resulted Con-Iv Only 10:35 Date of Service: Oct 23, 2024 Billing Provider: JONNATHAN BRENNAN MD Common Visit Codes: [id number] INP/OBS CARE(HIGH) MIGUEL ÁNGEL FRANCES RESIDENT Oct 23, 2024 19:32 JONNATHAN BRENNAN MD Oct 24, 2024 07:25
--- NOTE | 2024-10-23 19:59 | DVHHP2 ---
History Allergies: Coded Allergies: NO KNOWN ALLERGIES (Unverified , 10/21/24) Chief Complaint: Orthopaedic consultation for 39M, lytic lesion left femur greater trochanter Present Illness(Onset/Duration 39 M, admitted on 10/21/24 with history of pain swelling , perianal, left proxiaml posterior thigh since 10/18/20, rupture and purulent discharge on 10/21. Admitted for IV ABX. CT pelvis showed opposite side RIGHT greater trochanter lytic area... No pain over lateral right hip. No current or past infection or draining sinus on RIGHT side. non contributory Past Surgical History non contributory Medications see internal med H and P Physical Exam Skin left proximal thigh, buttock, draining sinus. right side hip skin intact EENT NCAT Chest and Lungs CTA B Heart RRR neg MRG Extremities Left buttock perianal draining sinus. Right hip greater trochanter no pain iwth palpation, No erythema, pain, swelling of right lateral hip Vital Signs Vital Signs Date Time Temp Pulse Resp B/P (MAP) Pulse Ox O2 Delivery O2 Flow Rate FiO2 10/23/24 16:54 98.4 75 18 132/82 (99) 99 98.4 10/23/24 08:00 Room Air* 0 21 Impressions/Description Right hip greater trochanter lytic lesion. CT right hip shows lytic lesion 3x3 cm, no cortical destruciton or expansion, no soft tissue involvement or evidence of soft tissue infection. Perianal abscess is on opposite side with no evidence of direct tracking to right side DDX benign lytic lesion focal blood borne osteomyelitis Plan I discussed case with Dr Correa 1) MRI right hip with contrast 2) clear for dc to home on IV abx from ortho view with follow up in clinic of Dr Correa 1-2 wks ALF HERRING MD Oct 23, 2024 19:59
--- NOTE | 2024-10-23 20:06 | DVH ---
ULTRASOUND SOFT TISSUE HEAD AND NECK CLINICAL INDICATION: Thyroid nodule TECHNIQUE: Multiple real time sonographic images of the thyroid were obtained. COMPARISON: Prior exam dated none FINDINGS: RIGHT LOBE OF THE THYROID: Measures 5.1 x 2.5 x 2.5 cm. Heterogeneous parenchyma. No nodules. LEFT LOBE OF THYROID. Measures approximately 3 X 1.9 X 1.3 cm. Homogeneous thyroid texture ISTHMUS: Measures 0.7 cm. IMPRESSION: 1. No thyroid nodules. 2. Right lobe measures 5.1 cm. Left lobe measures 3 cm. [employer] TI-RADS Categories and Recommendations (2017): TR1: 0 points, Benign, No FNA TR2: 2 points, Not suspicious, No FNA TR3: 3 points, Mildly suspicious, FNA if > or = 2.5 cm, Follow if > or = 1.5 cm TR4: 4-6 points, Moderately Suspicious, FNA if > or = 1.5 cm, Follow if > or = 1.0 cm TR5: 7+ points, Highly Suspicious, FNA if > or = 1.0 cm, Follow if > or = 0.5 cm Follow-up ultrasound guidelines: TR5: yearly for 5 years, if no growth or change in TI-RADS level TR4: at 1, 2, 3 and 5 years, if no growth or change in TI-RADS level TR3: at 1, 3 and 5 years, if no growth or change in TI-RADS level If increased but below threshold for FNA, repeat in one year. Source: ACR Thyroid Imaging, Reporting and Data System (TI-RADS): White Paper of the ACR TI-RADS Committee. Gilda et al., J Am Loi Radiol 2017;14:587-595.
[2024-10-24 01:00] VITALS: BP_SYST 125; BP_SYST 128; BP_DIAS 52; BP_DIAS 72; PULSE 80; PULSE 88; RESP 17; TEMP 97.6; TEMP 98.3; O2SAT 95; O2SAT 98
[2024-10-24] MEDS: IOHEXOL 300 MG/ML 100ML BOTTLE IJ ONE (03:48)
[2024-10-24 05:00] VITALS: BP 138/87; PULSE 73; RESP 18; TEMP 98.3; O2SAT 98
[2024-10-24 08:06] LABS: PSA Free 0.31 ng/mL; Prostate Specific Antigen 0.9 ng/mL (0.0-4.0)
[2024-10-24 09:00] VITALS: BP 127/78; PULSE 70; RESP 16; TEMP 98.1; O2SAT 98
[2024-10-24 13:00] VITALS: BP 131/82; PULSE 70; RESP 20; TEMP 98; O2SAT 96
--- NOTE | 2024-10-24 16:00 | DVHPNRES ---
Progress Note Date Seen: Oct 24, 2024 Resident Creating Document: MIGUEL ÁNGEL FRANCES RESIDENT Has the PT tested + for MRSA If YES, has PT been informed?: No Medical Necessity Reason Pt with a Central, PICC or Fol: No Subjective Review of Systems 39-year-old male presents for evaluation of abscess. Patient reports a three day history of noticing an abscess to his left upper thigh/perianal. He reports that yesterday he felt the abscess pop and has been having purulent discharge since then. Denies fever or chills. He reports having a history of this in the past and required an I and D. denies any other acute complaints at the moment. Objective vital signs Vital Sign Date Time Temp Pulse Resp B/P (MAP) Pulse Ox O2 Delivery O2 Flow Rate FiO2 10/24/24 13:00 98.0 70 20 131/82 (98) 96 98.0 10/24/24 08:00 Room Air* 0 21 Total Intake and Output 10/23/24 10/23/24 10/24/24 15:00 23:00 07:00 Intake Total 50 ml 1950 ml 1500 ml Output Total 1000 ml Balance 50 ml 950 ml 1500 ml medications Current Medications Medications Dose Ordered Sig/Julio Route Start Time Stop Time Status Last Admin Dose Admin Acetaminophen/ Hydrocodone Bitart 1 tab Q4HP PRN PO 10/21/24 20:00 10/24/24 05:43 1 TAB Temazepam 15 mg QHSP PRN PO 10/21/24 20:00 Ondansetron HCl 4 mg Q4HP PRN IV 10/21/24 20:00 Acetaminophen 650 mg Q6HP PRN PO 10/21/24 20:00 Sodium Chloride 1,000 ml @ 100 mls/hr Q10H IV 10/22/24 10:45 10/24/24 14:21 100 MLS/HR Cefazolin Sodium 50 ml @ 100 mls/hr Q8HR IV 10/22/24 17:00 10/24/24 14:21 100 MLS/HR Examination Gen: 39-year-old male in mild distress Skin: Warm, dry, normal color and texture, no rash. HEENT: Normocephalic atraumatic, mucous membranes moist and pink. Neck: Cervical and supraclavicular nodes normal without enlargement, trachea is midline, thyroid gland is normal without masses. Pulmonary: Clear to auscultation and percussion bilaterally. Cardiac: Regular rate and rhythm. No murmur Abdomen: Soft, nontender, nondistended, bowel sounds present all 4 quadrants, no guarding, no rigidity, no organomegaly. G/U wound covered without bleeding or supuration Extremities: No cyanosis, clubbing, left upper thigh/perianal abscess Neuro: Cranial nerves II through XII grossly intact, normal affect and speech, no focal motor deficits. laboratory and microbiology Laboratory Tests 10/23/24 05:35 Test 10/23/24 05:35 Range/Units Serum Glucose 89 74-106 mg/dL Microbiology Date/Time Source Procedure Growth Status 10/22/24 09:15 Other Left Gram Stain - Final Resulted 10/22/24 09:15 Other Left Anaerobic Culture - Preliminary Resulted 10/22/24 09:15 Other Left Aerobic Culture - Preliminary Resulted 10/21/24 18:36 Blood Blood Culture - Preliminary NO GROWTH AFTER 48 HOURS OF INCUBATION. Resulted Problem List/Assessment/Plan Problem List/Assessment/Plan #Inflammatory changes in the medial aspect of the left intergluteal fold with gas in the soft tissues suggesting necrotizing fasciitis. #Perirectal and thigh abscess plus hidradenitis. #s/p Incision and drainage of multiple abscesses in the perianal skin, posterior upper thigh and buttock #4.3 x 3.2 cm lytic process in the greater trochanter of the proximal right femur suggestive of metastatic disease. #Mild hazy ground-glass opacity with tree-in-bud nodular opacities in the posterior right upper lobe #Heterogeneous appearance of the right thyroid lobe with the 2.3 cm thyroid nodule Plan Regular diet Cefazolin per Surgery IV fluids 100 cc/h Pain control Ortho surgery consult due to findings of lytic process: possible osteomyelitis. pending MRI normal thyroid ultrasound TSH normal HIV negative PSA negative ANAs pending Case discussed with Dr Brennan Time spent on care 23 min Plan discussed with: Patient, Other (rn) My Orders My Orders Orders - MIGUEL ÁNGEL FRANCES Procedure Category Date Status Time Thyroid US 10/23/24 Resulted 19:21 [place]; Direct LAB 10/23/24 In Process 19:21 Complete Blood Count LAB 10/25/24 Verified 04:00 Comprehensive LAB 10/25/24 Verified Metabolic Panel 04:00 Right Hip Wo W MRI 10/24/24 Logged Contrast 06:27 Date of Service: Oct 24, 2024 Billing Provider: JONNATHAN BRENNAN MD Common Visit Codes: [id number] INP/OBS CARE(HIGH) MIGUEL ÁNGEL FRANCES RESIDENT Oct 24, 2024 16:00 JONNATHAN BRENNAN MD Oct 24, 2024 23:52
[2024-10-24 17:00] VITALS: BP 132/80; PULSE 72; RESP 17; TEMP 98.1; O2SAT 96
[2024-10-24 21:00] VITALS: BP 146/82; PULSE 80; RESP 19; TEMP 98.1; O2SAT 94
[2024-10-25] VITALS (8 sets, daily range): BP systolic 124–144; BP diastolic 74–87; PULSE 68–80; RESP 17–19; TEMP 98–98.8; O2SAT 95–100
[2024-10-25 06:20] LABS: Basophils # (auto) 0 10 ^3/uL (0-0.2); Basophils % (auto) 0.2 % (0.0-2.0); Hemoglobin 13.7 g/dL (13.5-17.5); Lymphocytes # (auto) 1.8 10 ^3/uL (0.4-5.4); Mean Corpuscular Hemoglobin 26.6 pg (28.0-32.0)
[2024-10-25 06:22] LABS: Eosinophils # (auto) 0.3 10 ^3/uL (0-0.8); Eosinophils % (auto) 3.9 % (0.0-7.0); Hematocrit 41.6 % (41.0-53.0); Lymphocytes % (auto) 25.7 % (10.0-50.0); Mean Corpuscular Hgb Conc. 32.9 g/dL (32.0-36.0); Mean Corpuscular Volume 80.9 fL (80.0-100.0); Monocytes # (auto) 0.8 10 ^3/uL (0-1.3); Monocytes % (auto) 11.4 % (0.0-12.0); Neutrophils # (auto) 4.1 10 ^3/uL (1.6-8.6); Neutrophils % (auto) 58.8 % (37.0-80.0); Nucleated Red Blood Cells % 0.2 %; Platelet Count (auto) 329 10^3/uL (140-450); Red Blood Cells 5.14 10^6/uL (4.5-5.90); Red Cell Distribution Width 16.9 % (11.8-14.3); White Blood Cell 7.1 10^3/uL (4.4-10.8)
[2024-10-25 06:49] LABS: Alanine Aminotransferase 11 U/L (7-40); Albumin 3.8 g/dL (3.2-4.8); Alkaline Phosphatase 96 U/L (46-116); Anion Gap 6 (5-15); Aspartate Aminotransferase 17 U/L (13-40); Bilirubin, Total 0.2 mg/dL (0.2-1.0); Blood Urea Nitrogen < 5 mg/dL (9-23); Calcium 9.1 mg/dL (8.7-10.4); Carbon Dioxide 26 mmol/L (20-31); Chloride 106 mmol/L (98-107); Glucose 94 mg/dL (74-106); Potassium 3.9 mmol/L (3.5-5.1); Sodium 138 mmol/L (136-145); Total Protein 6.5 g/dL (5.7-8.2)
[2024-10-25] MEDS ORDERED: MIDAZOLAM HCL 5 MG/ML-1ML VIAL ONE (07:46)
[2024-10-25] MEDS ORDERED: fentaNYL CITRATE 100 MCG/2 ML VL ONE (07:46)
[2024-10-25] MEDS ORDERED: SODIUM CHLORIDE LOCK 0 ML ONE (07:47)
[2024-10-25] MEDS ORDERED: NALOXONE HCL 0.4 MG/ML VIAL ONE (07:47)
[2024-10-25] MEDS ORDERED: FLUMAZENIL 0.1 MG/ML INJ 10ML MDV IV ONE (07:47)
--- NOTE | 2024-10-25 08:50 | DVHPN2 ---
Progress Note Date Seen: Oct 25, 2024 Has the PT tested + for MRSA If YES, has PT been informed?: No Medical Necessity Reason Pt with a Central, PICC or Fol: No Subjective Patient reports: No new complaints, Feels better Review of Systems: HEENT:Normal, CVS:Normal, RESPIRATORY:Normal, GI:Normal, :Normal, MSK:Normal, NEURO:Normal Objective vital signs Vital Sign Date Time Temp Pulse Resp B/P (MAP) Pulse Ox O2 Delivery O2 Flow Rate FiO2 10/25/24 05:00 98.0 77 18 139/87 (104) 97 98.0 10/24/24 20:00 Room Air* 0 21 Total Intake and Output 10/24/24 10/24/24 10/25/24 15:00 23:00 07:00 Intake Total 50 ml 2450 ml 1550 ml Output Total 1200 ml 1300 ml Balance 50 ml 1250 ml 250 ml medications Current Medications Medications Dose Ordered Sig/Julio Route Start Time Stop Time Status Last Admin Dose Admin Acetaminophen/ Hydrocodone Bitart 1 tab Q4HP PRN PO 10/21/24 20:00 10/24/24 05:43 1 TAB Temazepam 15 mg QHSP PRN PO 10/21/24 20:00 Ondansetron HCl 4 mg Q4HP PRN IV 10/21/24 20:00 Acetaminophen 650 mg Q6HP PRN PO 10/21/24 20:00 Sodium Chloride 1,000 ml @ 100 mls/hr Q10H IV 10/22/24 10:45 10/25/24 04:46 100 MLS/HR Cefazolin Sodium 50 ml @ 100 mls/hr Q8HR IV 10/22/24 17:00 10/25/24 04:44 100 MLS/HR Examination: GENERAL:Normal, HEENT:Normal, NECK:Normal, LUNGS:Normal, CVS:Normal, ABDOMEN:Normal, MSK:Normal, SKIN:Abnormal (perirecta abscess) laboratory and microbiology Laboratory Tests 10/25/24 05:24 Test 10/25/24 05:24 Range/Units Serum Glucose 94 74-106 mg/dL Problem List/Assessment/Plan Problem List/Assessment/Plan 10/25/24 patient doing well , no new complaints, wound dressing changed daily, no purulent drainage noted Plan discussed with: Patient, Other MARICHUY QUILES SCIENTIST/ENGINEER Oct 25, 2024 08:50
[2024-10-25] MEDS ORDERED: HYDROcodone-ACET 5/325MG TAB PO PRN (14:30)
--- NOTE | 2024-10-25 17:58 | DVH ---
CLINICAL INFORMATION: 39 years old, Male; rule out malignancy. TECHNIQUE: Multisequence multiplanar MRI images of the right hip were obtained without contrast. COMPARISON: None FINDINGS: BONES: Lobulated T2 hyperintense and T1 hypointense lesion in the greater trochanter of the right pro ximal femur measuring up to 3 3.8 x 3.1 x 3.8 cm, with multiple septations. There is peripheral enha ncement of the lesion enhancing septations on the postcontrast images. When correlated with prior CT images, there is sclerosis along the margins of the lesion. No evidence of cortical destruction. N o soft tissue component of the lesion no suspicious periosteal reaction. Fluid fluid levels are seen in the lesion. There is no perilesional edema. There is a small lesion seen in the intertrochanteric region of the contralateral left proximal femur measuring up to 1 cm in greatest dimension, demonstra ting T2 hyperintense signal and T1 hypointense signal, appears well-circumscribed and demonstrates en hancement, possible small fibrous lesion such as nonossifying fibroma. JOINT: No significant arthropathy. No labral tear identified. No significant joint effusion. BURSAE: Unremarkable. No significant fluid in the trochanteric or iliopsoas bursae. TENDONS: Mild tendinosis of the distal gluteus medius and minimus tendons. No tear. Origins of the re ctus femoris tendon and hamstring tendons are intact. Distal insertion of the iliopsoas tendon is int act. MUSCLES: Normal muscle bulk. No significant atrophy. No evidence of muscle strain or tear. OTHER: Inflammatory changes with edema and enhancement in the left gluteal fold extending to the sonny yue region and with fistulous tract extending to the left perianal region. There is a partially visu alized collection containing gas in the left gluteal fold, likely phlegmon/abscess with surrounding c ellulitis. IMPRESSION: 1. Lobulated predominantly cystic lesion in the right greater trochanter, with nonaggressive features as described above. Differential considerations would include intraosseous ganglion cyst, simple daisy ne cyst, or aneurysmal bone cyst. Correlate with clinical findings. 2. There is a small enhancing lesion in the left proximal femur intertrochanteric region, also with n onaggressive features, most likely a small fibrous lesion such as nonossifying fibroma. Small enchond pan could also be considered. 3. Inflammatory changes in the left gluteal fold and adjacent areas as described above, seen on prior exam with associated perianal fistula demonstrated. 4. Additional findings as described above.
--- NOTE | 2024-10-25 20:52 | DVHPNRES ---
Progress Note Date Seen: Oct 25, 2024 Resident Creating Document: MIGUEL ÁNGEL FRANCES RESIDENT Has the PT tested + for MRSA If YES, has PT been informed?: No Medical Necessity Reason Pt with a Central, PICC or Fol: No Subjective Review of Systems 39-year-old male presents for evaluation of abscess. Patient reports a three day history of noticing an abscess to his left upper thigh/perianal. He reports that yesterday he felt the abscess pop and has been having purulent discharge since then. Denies fever or chills. He reports having a history of this in the past and required an I and D. denies any other acute complaints at the moment. Objective vital signs Vital Sign Date Time Temp Pulse Resp B/P (MAP) Pulse Ox O2 Delivery O2 Flow Rate FiO2 10/25/24 20:00 100 Room Air* 0 21 10/25/24 16:30 98.1 68 17 139/80 (99) 98.1 Total Intake and Output 10/24/24 10/24/24 10/25/24 14:59 22:59 06:59 Intake Total 50 ml 2450 ml 1550 ml Output Total 1200 ml 1300 ml Balance 50 ml 1250 ml 250 ml medications Current Medications Medications Dose Ordered Sig/Julio Route Start Time Stop Time Status Last Admin Dose Admin Temazepam 15 mg QHSP PRN PO 10/21/24 20:00 Ondansetron HCl 4 mg Q4HP PRN IV 10/21/24 20:00 Acetaminophen 650 mg Q6HP PRN PO 10/21/24 20:00 Sodium Chloride 1,000 ml @ 100 mls/hr Q10H IV 10/22/24 10:45 10/25/24 17:58 100 MLS/HR Cefazolin Sodium 50 ml @ 100 mls/hr Q8HR IV 10/22/24 17:00 10/25/24 14:14 100 MLS/HR Acetaminophen/ Hydrocodone Bitart 1 tab Q4HP PRN PO 10/25/24 14:30 Examination Gen: 39-year-old male in mild distress Skin: Warm, dry, normal color and texture, no rash. HEENT: Normocephalic atraumatic, mucous membranes moist and pink. Neck: Cervical and supraclavicular nodes normal without enlargement, trachea is midline, thyroid gland is normal without masses. Pulmonary: Clear to auscultation and percussion bilaterally. Cardiac: Regular rate and rhythm. No murmur Abdomen: Soft, nontender, nondistended, bowel sounds present all 4 quadrants, no guarding, no rigidity, no organomegaly. G/U wound covered without bleeding or supuration Extremities: No cyanosis, clubbing, left upper thigh/perianal abscess Neuro: Cranial nerves II through XII grossly intact, normal affect and speech, no focal motor deficits. laboratory and microbiology Laboratory Tests 10/25/24 05:24 Test 10/25/24 05:24 Range/Units Serum Glucose 94 74-106 mg/dL Microbiology Date/Time Source Procedure Growth Status 10/22/24 09:15 Other Left Gram Stain - Final Resulted 10/22/24 09:15 Other Left Anaerobic Culture - Preliminary Resulted 10/22/24 09:15 Other Left Aerobic Culture - Preliminary Resulted 10/21/24 18:36 Blood Blood Culture - Preliminary NO GROWTH AFTER 72 HOURS OF INCUBATION. Resulted Problem List/Assessment/Plan Problem List/Assessment/Plan #Inflammatory changes in the medial aspect of the left intergluteal fold with gas in the soft tissues suggesting necrotizing fasciitis. #Perirectal and thigh abscess plus hidradenitis. #s/p Incision and drainage of multiple abscesses in the perianal skin, posterior upper thigh and buttock #4.3 x 3.2 cm lytic process in the greater trochanter of the proximal right femur suggestive of metastatic disease. #Mild hazy ground-glass opacity with tree-in-bud nodular opacities in the posterior right upper lobe #Heterogeneous appearance of the right thyroid lobe with the 2.3 cm thyroid nodule Plan Regular diet Cefazolin per Surgery IV fluids 100 cc/h Pain control Ortho surgery consult due to findings of lytic process: . MRI ruled out osteomyelitis normal thyroid ultrasound TSH normal HIV negative PSA negative ANAs pending Possible dc tomorrow Case discussed with Dr Brennan Time spent on care 23 min Plan discussed with: Patient, Other (rn) My Orders My Orders Orders - MIGUEL ÁNGEL FRANCES Procedure Category Date Status Time Hydrocodone-Acet PHA 10/25/24 In Process 10/325mg Tab ([place] 14:30 Date of Service: Oct 25, 2024 Billing Provider: JONNATHAN BRENNAN MD Common Visit Codes: [id number] INP/OBS CARE(HIGH) MIGUEL ÁNGEL FRANCES Oct 25, 2024 20:52 JONNATHAN BRENNAN MD Oct 25, 2024 23:15
[2024-10-26] VITALS (7 sets, daily range): BP systolic 126–137; BP diastolic 71–88; PULSE 66–77; RESP 16–20; TEMP 97.4–98.4; O2SAT 97–100
[2024-10-26 10:47] LABS: Basophils # (auto) 0 10 ^3/uL (0-0.2); Eosinophils # (auto) 0.2 10 ^3/uL (0-0.8); Lymphocytes # (auto) 1.5 10 ^3/uL (0.4-5.4); Monocytes # (auto) 0.9 10 ^3/uL (0-1.3)
[2024-10-26 10:48] LABS: Basophils % (auto) 0.2 % (0.0-2.0); Eosinophils % (auto) 2.7 % (0.0-7.0); Hematocrit 44.4 % (41.0-53.0); Hemoglobin 14.5 g/dL (13.5-17.5); Lymphocytes % (auto) 18.7 % (10.0-50.0); Mean Corpuscular Hemoglobin 26.9 pg (28.0-32.0); Mean Corpuscular Hgb Conc. 32.8 g/dL (32.0-36.0); Mean Corpuscular Volume 82.2 fL (80.0-100.0); Monocytes % (auto) 11.2 % (0.0-12.0); Neutrophils # (auto) 5.3 10 ^3/uL (1.6-8.6); Neutrophils % (auto) 67.2 % (37.0-80.0); Platelet Count (auto) 350 10^3/uL (140-450); Red Cell Distribution Width 17.2 % (11.8-14.3)
[2024-10-26] MEDS: ONDANSETRON HCL 4 MG/2 ML VIAL IV PRN (14:59)
--- NOTE | 2024-10-26 16:11 | DVHPNRES ---
Progress Note Date Seen: Oct 26, 2024 Resident Creating Document: SANDRA ALLEN RESIDENT Has the PT tested + for MRSA If YES, has PT been informed?: No Medical Necessity Reason Pt with a Central, PICC or Fol: No Subjective Review of Systems 39-year-old male presents for evaluation of abscess. Patient reports a three day history of noticing an abscess to his left upper thigh/perianal. He reports that yesterday he felt the abscess pop and has been having purulent discharge since then. Denies fever or chills. He reports having a history of this in the past and required an I and D. denies any other acute complaints at the moment. Objective vital signs Vital Sign Date Time Temp Pulse Resp B/P (MAP) Pulse Ox O2 Delivery O2 Flow Rate FiO2 10/26/24 13:30 98.4 73 16 132/84 (100) 97 98.4 10/26/24 08:00 Room Air* 0 21 Total Intake and Output 10/25/24 10/25/24 10/26/24 15:00 23:00 07:00 Intake Total 1920 ml 650 ml Output Total 1400 ml 1200 ml Balance 520 ml -550 ml medications Current Medications Medications Dose Ordered Sig/Julio Route Start Time Stop Time Status Last Admin Dose Admin Temazepam 15 mg QHSP PRN PO 10/21/24 20:00 Ondansetron HCl 4 mg Q4HP PRN IV 10/21/24 20:00 10/26/24 14:59 4 MG Acetaminophen 650 mg Q6HP PRN PO 10/21/24 20:00 Sodium Chloride 1,000 ml @ 100 mls/hr Q10H IV 10/22/24 10:45 10/26/24 14:59 100 MLS/HR Cefazolin Sodium 50 ml @ 100 mls/hr Q8HR IV 10/22/24 17:00 10/26/24 14:54 100 MLS/HR Acetaminophen/ Hydrocodone Bitart 1 tab Q4HP PRN PO 10/25/24 14:30 Examination Gen: 39-year-old male in mild distress Skin: Warm, dry, normal color and texture, no rash. HEENT: Normocephalic atraumatic, mucous membranes moist and pink. Neck: Cervical and supraclavicular nodes normal without enlargement, trachea is midline, thyroid gland is normal without masses. Pulmonary: Clear to auscultation and percussion bilaterally. Cardiac: Regular rate and rhythm. No murmur Abdomen: Soft, nontender, nondistended, bowel sounds present all 4 quadrants, no guarding, no rigidity, no organomegaly. G/U wound covered without bleeding or supuration Extremities: No cyanosis, clubbing, left upper thigh/perianal abscess Neuro: Cranial nerves II through XII grossly intact, normal affect and speech, no focal motor deficits. laboratory and microbiology Laboratory Tests 10/26/24 10:00 10/25/24 05:24 Test 10/25/24 05:24 Range/Units Serum Glucose 94 74-106 mg/dL Microbiology Date/Time Source Procedure Growth Status 10/22/24 09:15 Other Left Gram Stain - Final Resulted 10/22/24 09:15 Other Left Anaerobic Culture - Preliminary Resulted 10/22/24 09:15 Aerobic Culture - Preliminary Shigella Species Resulted 10/21/24 18:36 Blood Blood Culture - Preliminary NO GROWTH AFTER 72 HOURS OF INCUBATION. Resulted Problem List/Assessment/Plan Problem List/Assessment/Plan #Inflammatory changes in the medial aspect of the left intergluteal fold with gas in the soft tissues suggesting necrotizing fasciitis. #Perirectal and thigh abscess plus hidradenitis. #s/p Incision and drainage of multiple abscesses in the perianal skin, posterior upper thigh and buttock #4.3 x 3.2 cm lytic process in the greater trochanter of the proximal right femur suggestive of metastatic disease. #Mild hazy ground-glass opacity with tree-in-bud nodular opacities in the posterior right upper lobe #Heterogeneous appearance of the right thyroid lobe with the 2.3 cm thyroid nodule Plan Regular diet Cefazolin per Surgery IV fluids 100 cc/h Pain control Ortho surgery consult due to findings of lytic process:. MRI ruled out osteomyelitis normal thyroid ultrasound TSH normal HIV negative PSA negative ANAs negative Patient was clinically stable and WBC counts are within normal limits. Daily dressing changes Bacteria culture from perianal and left thigh abscess shows growth of Shigella with sensitivities as reported. As per Orthopedics, patient was sent on home antibiotics IV. web services architect consulted for sending home patient on IV ertapenem 1 g daily for 6 weeks Case discussed with Dr Brennan Time spent on care 23 min Plan discussed with: Patient My Orders My Orders Orders - SANDRA ALLEN RESIDENT Procedure Category Date Status Time * Group Work Program Director CONS 10/26/24 Transmitted Consult * Picc Line Consult CONS 10/26/24 Transmitted 14:05 Date of Service: Oct 26, 2024 Billing Provider: JONNATHAN BRENNAN MD Common Visit Codes: [id number] INP/OBS CARE(HIGH) SANDRA ALLEN RESIDENT Oct 26, 2024 16:11 JONNATHAN BRENNAN MD Oct 26, 2024 20:00
[2024-10-26] MEDS: GADOTERATE MEG 10 MMOL/20ml INJ (0.5MMOL/ml) IV ONE (16:32)
[2024-10-26] MEDS: HYDROcodone-ACET 10/325MG TAB PO PRN (23:53)
[2024-10-27] VITALS (8 sets, daily range): BP systolic 117–149; BP diastolic 64–89; PULSE 64–85; RESP 18–20; TEMP 97.5–98.4; O2SAT 95–99
[2024-10-27 06:03] LABS: Basophils # (auto) 0 10 ^3/uL (0-0.2); Basophils % (auto) 0.5 % (0.0-2.0); Eosinophils # (auto) 0.3 10 ^3/uL (0-0.8); Hematocrit 41.2 % (41.0-53.0); Hemoglobin 13.8 g/dL (13.5-17.5); Lymphocytes # (auto) 2.9 10 ^3/uL (0.4-5.4); Lymphocytes % (auto) 28.6 % (10.0-50.0); Mean Corpuscular Hemoglobin 27.2 pg (28.0-32.0); Mean Corpuscular Hgb Conc. 33.4 g/dL (32.0-36.0); Mean Corpuscular Volume 81.6 fL (80.0-100.0); Monocytes # (auto) 1.2 10 ^3/uL (0-1.3); Monocytes % (auto) 12.1 % (0.0-12.0); Neutrophils # (auto) 5.6 10 ^3/uL (1.6-8.6); Neutrophils % (auto) 55.8 % (37.0-80.0); Nucleated Red Blood Cells % 0.1 %; Platelet Count (auto) 315 10^3/uL (140-450); Red Blood Cells 5.05 10^6/uL (4.5-5.90)
[2024-10-27 06:18] LABS: INR 1.06 (0.9-1.15); Partial Thromboplastin Time 27.1 SEC (24.5-34.5); Prothrombin Time 11.2 sec (9.3-11.8)
[2024-10-27] MEDS: LIDOCAINE 1% (LOCAL ANESTH.) PF 5ml SDV ID ONE (13:40)
[2024-10-27] MEDS ORDERED: ACET-1882 PO (16:59)
--- NOTE | 2024-10-27 19:47 | DVHDSRES ---
Discharge Summary Date of Admission Resident Creating Document: MIGUEL ÁNGEL FRANCES RESIDENT Oct 21, 2024 at 19:47 Date of Discharge: Oct 27, 2024 Admitting Diagnosis #Perirectal and thigh abscess plus hidradenitis. Labs/Diagnostic Data: Laboratory Results Test 10/27/24 05:05 10/25/24 05:24 10/23/24 19:45 10/23/24 18:00 White Blood Count 10.0 10^3/uL (4.4-10.8) Red Blood Count 5.05 10^6/uL (4.5-5.90) Hemoglobin 13.8 g/dL (13.5-17.5) Hematocrit 41.2 % (41.0-53.0) Mean Corpuscular Volume 81.6 fL (80.0-100.0) Mean Corpuscular Hemoglobin 27.2 pg (28.0-32.0) Mean Corpuscular Hemoglobin Concent 33.4 g/dL (32.0-36.0) Red Cell Distribution Width 17.0 % (11.8-14.3) Platelet Count 315 10^3/uL (140-450) Mean Platelet Volume 7.4 fL (6.9-10.8) Neutrophils (%) (Auto) 55.8 % (37.0-80.0) Lymphocytes (%) (Auto) 28.6 % (10.0-50.0) Monocytes (%) (Auto) 12.1 % (0.0-12.0) Eosinophils (%) (Auto) 3.0 % (0.0-7.0) Basophils (%) (Auto) 0.5 % (0.0-2.0) Neutrophils # (Auto) 5.6 10 ^3/uL (1.6-8.6) Lymphocytes # (Auto) 2.9 10 ^3/uL (0.4-5.4) Monocytes # (Auto) 1.2 10 ^3/uL (0-1.3) Eosinophils # (Auto) 0.3 10 ^3/uL (0-0.8) Basophils # (Auto) 0 10 ^3/uL (0-0.2) Nucleated Red Blood Cells 0.1 % Prothrombin Time 11.2 sec (9.3-11.8) Prothrombin Time INR 1.06 (0.9-1.15) Activated Partial Thromboplast Time 27.1 SEC (24.5-34.5) Sodium Level 138 mmol/L (136-145) Potassium Level 3.9 mmol/L (3.5-5.1) Chloride Level 106 mmol/L (98-107) Carbon Dioxide Level 26 mmol/L (20-31) Anion Gap 6 (5-15) Blood Urea Nitrogen < 5 mg/dL (9-23) Creatinine 0.84 mg/dL (0.700-1.30) Glomerular Filtration Rate Calc 115 mL/min (>90) BUN/Creatinine Ratio 6.0 (10.0-20.0) Serum Glucose 94 mg/dL (74-106) Calcium Level 9.1 mg/dL (8.7-10.4) Total Bilirubin 0.2 mg/dL (0.2-1.0) Aspartate Amino Transferase (AST) 17 U/L (13-40) Alanine Aminotransferase (ALT) 11 U/L (7-40) Alkaline Phosphatase 96 U/L (46-116) Total Protein 6.5 g/dL (5.7-8.2) Albumin 3.8 g/dL (3.2-4.8) Anti-Nuclear Antibody Screen Negative (Negative) HIV (1&2) Antibody Negative (Negative) Stool Occult Blood Negative (Negative) Stool Occult Blood Sample #3 (Negative) Test 10/23/24 05:35 10/23/24 00:52 10/22/24 23:15 10/21/24 18:36 Free Prostate Specific Antigen 0.31 ng/mL (N/A) Percent Free Prostate Specific Ag 34.4 % (.) Prostate Specific Antigen Total 0.9 ng/mL (0.0-4.0) Thyroid Stimulating Hormone (TSH) 1.02 uIU/mL (0.55-4.78) Vancomycin Level Trough < 3.0 ug/mL (5-10) Urine Color Yellow (Yellow) Urine Clarity Clear (Clear) Urine pH 6.0 (5.0-9.0) Urine Specific M[place]ie 1.025 (1.001-1.035) Urine Protein Trace (Negative) Urine Ketones Trace (Negative) Urine Blood Trace /uL (Negative) Urine Nitrite Negative (Negative) Urine Bilirubin Negative (Negative) Urine Urobilinogen Normal mg/dL (Negative) Urine Leukocyte Esterase Trace /uL (Negative) Urine RBC 12 /hpf (0 - 3) Urine Microscopic WBC 7 /HPF (0-3) Urine Squamous Epithelial Cells Few /hpf (<5) Urine Bacteria None seen /hpf (None Seen) Urine Mucus Few (None Seen) Urine Glucose Normal mg/dL (Normal) Lactic Acid Level 1.3 mmol/L (0.4-2.0) Hepatitis B Surface Antigen Negative (Negative) Hepatitis C Antibody Negative (Negative) Other Laboratory Tests 10/27/24 05:05 10/25/24 05:24 Brief Hx & Hospital Course: A 39-year-old male with a history of abscesses in the perianal and upper thigh regions presented with a three-day history of an enlarging abscess in the left upper thigh that spontaneously ruptured, releasing purulent drainage. He denied fever, chills, or systemic symptoms at presentation. Imaging revealed inflammatory changes with gas in the soft tissues of the left thigh, raising concern for necrotizing fasciitis, as well as findings suggestive of multiple abscesses in the perianal and posterior thigh areas. I & D was made and culture showed shigella species. MRI was done finding intraosseous ganglion cyst, simple bone cyst, or aneurysmal bone cyst Further workup included an evaluation for systemic rheumatologic conditions, neoplasms,, alongside thyroid imaging revealing a benign 2.5 cm thyroid nodule. The patient remained clinically stable throughout admission, with normal WBC counts. After surgical debridement and IV antibiotics were initiated, leading to clinical improvement. Wound care was coordinated, and the patient was discharged with instructions to continue IV ertapenem for 6 weeks and follow up with the surgical team. At discharge, he had no fever, localized erythema, or other signs of systemic infection. The patient was advised to monitor for any worsening symptoms and return for emergent care if needed. Gen: 39-year-old male in mild distress Skin: Warm, dry, normal color and texture, no rash. HEENT: Normocephalic atraumatic, mucous membranes moist and pink. Neck: Cervical and supraclavicular nodes normal without enlargement, trachea is midline, thyroid gland is normal without masses. Pulmonary: Clear to auscultation and percussion bilaterally. Cardiac: Regular rate and rhythm. No murmur Abdomen: Soft, nontender, nondistended, bowel sounds present all 4 quadrants, no guarding, no rigidity, no organomegaly. G/U wound covered without bleeding or supuration Extremities: No cyanosis, clubbing, left upper thigh/perianal abscess Neuro: Cranial nerves II through XII grossly intact, normal affect and speech, no focal motor deficits. Case discussed with Dr Kemp Time spent on care 23 min Consults/Reason for consult surgery and ortho due to perianal abscess and ruling out osteo and lytic lesion Operations or Procedures DATE OF SURGERY: 10/22/2024 PREOPERATIVE DIAGNOSIS: Perirectal and thigh abscess. POSTOPERATIVE DIAGNOSES: Perirectal and thigh abscess plus hidradenitis. PROCEDURE: Incision and drainage of multiple abscesses in the perianal skin, posterior upper thigh and buttock. The patient was presenting with an abscess of several days' duration. DESCRIPTION OF PROCEDURE: On examination under anesthesia, he has evidence of hidradenitis suppurativa with extensive scarring of the perianal and posterior thigh's skin. Multiple acute abscesses were drained and pus was sent for cultures and sensitivities. The wounds were irrigated with pulse lavage and packed with iodoform gauze. The patient remained stable throughout the procedure, left the operating room following an accurate needle and sponge count. His Blanca was thoroughly informed at [phone]. On questioning the , she stated that he has been having recurring infections for several years. I explained to her that no definitive operation can be done while the acute infection, and that eventually if he would become a candidate for elective operation, would probably needs to be done by a plastic surgeon. Parish Borges MD PF/KVA CLINICAL INFORMATION: 39 years old, Male; rule out malignancy. TECHNIQUE: Multisequence multiplanar MRI images of the right hip were obtained without contrast. COMPARISON: None FINDINGS: BONES: Lobulated T2 hyperintense and T1 hypointense lesion in the greater trochanter of the right proximal femur measuring up to 3 3.8 x 3.1 x 3.8 cm, with multiple septations. There is peripheral enhancement of the lesion enhancing septations on the postcontrast images. When correlated with prior CT images, there is sclerosis along the margins of the lesion. No evidence of cortical destruction. No soft tissue component of the lesion no suspicious periosteal reaction. Fluid fluid levels are seen in the lesion. There is no perilesional edema. There is a small lesion seen in the intertrochanteric region of the contralateral left proximal femur measuring up to 1 cm in greatest dimension, demonstrating T2 hyperintense signal and T1 hypointense signal, appears well-circumscribed and demonstrates enhancement, possible small fibrous lesion such as nonossifying fibroma. JOINT: No significant arthropathy. No labral tear identified. No significant joint effusion. BURSAE: Unremarkable. No significant fluid in the trochanteric or iliopsoas bursae. TENDONS: Mild tendinosis of the distal gluteus medius and minimus tendons. No tear. Origins of the rectus femoris tendon and hamstring tendons are intact. Distal insertion of the iliopsoas tendon is intact. MUSCLES: Normal muscle bulk. No significant atrophy. No evidence of muscle strain or tear. OTHER: Inflammatory changes with edema and enhancement in the left gluteal fold extending to the perineal region and with fistulous tract extending to the left perianal region. There is a partially visualized collection containing gas in the left gluteal fold, likely phlegmon/abscess with surrounding cellulitis. IMPRESSION: 1. Lobulated predominantly cystic lesion in the right greater trochanter, with nonaggressive features as described above. Differential considerations would include intraosseous ganglion cyst, simple bone cyst, or aneurysmal bone cyst. Correlate with clinical findings. 2. There is a small enhancing lesion in the left proximal femur intertrochanteric region, also with nonaggressive features, most likely a small fibrous lesion such as nonossifying fibroma. Small enchondroma could also be considered. 3. Inflammatory changes in the left gluteal fold and adjacent areas as described above, seen on prior exam with associated perianal fistula demonstrated. 4. Additional findings as described above. Condition at Discharge: Stable Final Diagnosis/Problems List #Inflammatory changes in the medial aspect of the left intergluteal fold with gas in the soft tissues suggesting necrotizing fasciitis. #Perirectal and thigh abscess plus hidradenitis. #s/p Incision and drainage of multiple abscesses in the perianal skin, posterior upper thigh and buttock #4.3 x 3.2 cm lytic process in the greater trochanter of the proximal right femur suggestive of metastatic disease. #Mild hazy ground-glass opacity with tree-in-bud nodular opacities in the posterior right upper lobe #Heterogeneous appearance of the right thyroid lobe with the 2.3 cm thyroid nodule Discharge Disposition: Home with Health Services Discharge Instruct/Medications Diet: Regular Activity: Light activity Follow Up/Referral: hi clinic Medications: pt will be in IV AB Discharge Statement: "Patient was advised to return to the ER or call 911 if any headaches, dizziness, shortness of breath, chest pain, abdominal pain, bleeding, fevers, or worsening of medical condition. Patient was counseled about treatment plan, medications, possible side effects, patientverbalized understanding. All questions were answered to the best of my ability. This discharge took greater then 30 minutes in planning, reviewing documentation, counseling the patient, and discussing with other team members." ASSESSMENT ASSESSMENT Assessment sp drainage of perianal abscess Date of Service: Oct 27, 2024 Billing Provider: KENY KEMP MD Common Visit Codes: 72752-FCW/OBS DISCH DAY >30min MIGUEL ÁNGEL FRANCES RESIDENT Oct 27, 2024 19:47 KENY KEMP MD Oct 29, 2024 16:35
[2024-10-27] MEDS: SODIUM CHLOR 0.9% PF (SALINE LOCK) 10ML VIAL/SYR IV SCH (22:10)
[2024-10-28 01:00] VITALS: BP 128/53; PULSE 77; RESP 18; TEMP 97.8; O2SAT 96
[2024-10-28 05:00] VITALS: BP 123/64; PULSE 64; RESP 18; TEMP 97.6; O2SAT 97
[2024-10-28 08:00] VITALS: RESP 18; O2SAT 97
[2024-10-28 09:00] VITALS: BP 144/85; PULSE 75; RESP 16; TEMP 98; O2SAT 99
[2024-10-28] MEDS: ERTAPENEM SOD INJ 1 GM in SODIUM CHL 0.9% 50 ML IV ONE (12:37)
[2024-10-28 12:43] VITALS: BP 134/81; PULSE 71; RESP 18; TEMP 98; O2SAT 96
[2024-10-28 15:11] VITALS: TEMP 36.7
--- NOTE | 2024-10-28 15:55 | DVHPNRES ---
Progress Note Date Seen: Oct 28, 2024 Resident Creating Document: MIGUEL ÁNGEL FRANCES RESIDENT Has the PT tested + for MRSA If YES, has PT been informed?: No Medical Necessity Reason Pt with a Central, PICC or Fol: No Subjective Review of Systems A 39-year-old male with a history of abscesses in the perianal and upper thigh regions presented with a three-day history of an enlarging abscess in the left upper thigh that spontaneously ruptured, releasing purulent drainage. He denied fever, chills, or systemic symptoms at presentation. Imaging revealed inflammatory changes with gas in the soft tissues of the left thigh, raising concern for necrotizing fasciitis, as well as findings suggestive of multiple abscesses in the perianal and posterior thigh areas. I & D was made and culture showed shigella species. MRI was done finding intraosseous ganglion cyst, simple bone cyst, or aneurysmal bone cyst Further workup included an evaluation for systemic rheumatologic conditions, neoplasms,, alongside thyroid imaging revealing a benign 2.5 cm thyroid nodule. The patient remained clinically stable throughout admission, with normal WBC counts. After surgical debridement and IV antibiotics were initiated, leading to clinical improvement. Wound care was coordinated, and the patient was discharged with instructions to continue IV ertapenem for 6 weeks and follow up with the surgical team. At discharge, he had no fever, localized erythema, or other signs of systemic infection. The patient was advised to monitor for any worsening symptoms and return for emergent care if needed. Objective vital signs Vital Sign Date Time Temp Pulse Resp B/P (MAP) Pulse Ox O2 Delivery O2 Flow Rate FiO2 10/28/24 15:11 36.7 10/28/24 12:43 71 18 134/81 (98) 96 10/28/24 08:00 Room Air* 0 21 Total Intake and Output 10/27/24 10/27/24 10/28/24 15:00 23:00 07:00 Intake Total 1100 ml 1315 ml Output Total 675 ml 1400 ml Balance 425 ml -85 ml medications Current Medications Medications Dose Ordered Sig/Julio Route Start Time Stop Time Status Last Admin Dose Admin Temazepam 15 mg QHSP PRN PO 10/21/24 20:00 Ondansetron HCl 4 mg Q4HP PRN IV 10/21/24 20:00 10/26/24 14:59 4 MG Acetaminophen 650 mg Q6HP PRN PO 10/21/24 20:00 Sodium Chloride 1,000 ml @ 100 mls/hr Q10H IV 10/22/24 10:45 10/28/24 03:00 100 MLS/HR Acetaminophen/ Hydrocodone Bitart 1 tab Q4HP PRN PO 10/25/24 14:30 10/27/24 22:10 1 TAB Sodium Chloride 10 ml QSHIFT@10,22 IV 10/27/24 22:00 10/28/24 10:58 10 ML Ertapenem 1 gm/ Sodium Chloride 50 ml @ 100 mls/hr DAILY IV 10/29/24 10:00 Examination Gen: 39-year-old male in mild distress Skin: Warm, dry, normal color and texture, no rash. HEENT: Normocephalic atraumatic, mucous membranes moist and pink. Neck: Cervical and supraclavicular nodes normal without enlargement, trachea is midline, thyroid gland is normal without masses. Pulmonary: Clear to auscultation and percussion bilaterally. Cardiac: Regular rate and rhythm. No murmur Abdomen: Soft, nontender, nondistended, bowel sounds present all 4 quadrants, no guarding, no rigidity, no organomegaly. G/U wound covered without bleeding or supuration Extremities: No cyanosis, clubbing, left upper thigh/perianal abscess Neuro: Cranial nerves II through XII grossly intact, normal affect and speech, no focal motor deficits. laboratory and microbiology Laboratory Tests 10/27/24 05:05 10/25/24 05:24 Test 10/25/24 05:24 Range/Units Serum Glucose 94 74-106 mg/dL Microbiology Date/Time Source Procedure Growth Status 10/22/24 09:15 Other Left Gram Stain - Final Resulted 10/22/24 09:15 Other Left Anaerobic Culture - Preliminary Resulted 10/22/24 09:15 Aerobic Culture - Preliminary Shigella Species Resulted 10/21/24 18:36 Blood Blood Culture - Final NO GROWTH AFTER 5 DAYS OF INCUBATION. Complete Problem List/Assessment/Plan Problem List/Assessment/Plan #Inflammatory changes in the medial aspect of the left intergluteal fold with gas in the soft tissues suggesting necrotizing fasciitis. #Perirectal and thigh abscess plus hidradenitis. #s/p Incision and drainage of multiple abscesses in the perianal skin, posterior upper thigh and buttock #4.3 x 3.2 cm lytic process in the greater trochanter of the proximal right femur suggestive of metastatic disease. #Mild hazy ground-glass opacity with tree-in-bud nodular opacities in the posterior right upper lobe #Heterogeneous appearance of the right thyroid lobe with the 2.3 cm thyroid nodule Plan Regular diet Invanz daily Pain control Ortho surgery consult due to findings of lytic process: . MRI ruled out osteomyelitis normal thyroid ultrasound TSH normal HIV negative PSA negative ANAs pending Patient is medical DC already waiting for HH arrangements Case discussed with Dr Kemp Time spent on care 23 min Plan discussed with: Patient, Other (rn) My Orders My Orders Orders - MIGUEL ÁNGEL FRANCSE RESIDENT Procedure Category Date Status Time Discharge DISCHARGE 10/27/24 Transmitted 16:54 Ertapenem Sod Inj PHA 10/29/24 In Process (Invanz) 10:00 Date of Service: Oct 28, 2024 Billing Provider: KENY KEMP MD Common Visit Codes: [id number] INP/OBS CARE(MOD) MIGUEL ÁNGEL FRANCES RESIDENT Oct 28, 2024 15:55 KENY KEMP MD Oct 29, 2024 16:36
[2024-10-29] MEDS ORDERED: ERTAPENEM SOD INJ 1 GM in SODIUM CHL 0.9% 50 ML IV SCH (10:00)
== END 2024-10-28 17:30 | disposition home health service (06) | DRG 364 ==
LOC: ER 17:57 → OVERFLOW 19:47 → WEST WING 10-22 14:22
PROVIDERS: ADMIT Student in an Organized Health Care Education/Training Program; ATTEND Student in an Organized Health Care Education/Training Program
PROC: 0Y980ZZ Drainage of Left Femoral Region, Open Approach (ICD-10-PCS; 2024-10-22)
PROC: 0D9Q0ZZ Drainage of Anus, Open Approach (ICD-10-PCS; principal; 2024-10-22 08:45)
PROC: 02HV33Z Insertion of Infusion Device into Superior Vena Cava, Percutaneous Approach (ICD-10-PCS; 2024-10-27)
PROC: B548ZZA Ultrasonography of Superior Vena Cava, Guidance (ICD-10-PCS; 2024-10-27)
DX: L02.416 Cutaneous abscess of left lower limb (principal); M72.6 Necrotizing fasciitis; K61.1 Rectal abscess; K61.0 Anal abscess; L02.215 Cutaneous abscess of perineum; F17.200 Nicotine dependence, unspecified, uncomplicated; L73.2 Hidradenitis suppurativa
CPT/HCPCS: 36415; 36569; 71275; 72193; 73723; 74178; 76536; 76937; 80048; 80053; 80202; 81001; 82270; 83605; 84154; 84443; 85025; 85610; 85730; 86038; 86703; 86803; 87040; 87070; 87075; 87076; 87077; 87186; 87205; 87340; 96365; 99291; G0378; J1335; J1885; J2250; J2405; J2543; J2704; J3490

== ENCOUNTER 2024-11-19 19:04 | Inpatient (IN) | payer MEDICAID ==
[~2024-11-19] VITALS: Ht 180.3 cm; Wt 75.7 kg
[2024-11-19] MEDS: ceFAZolin 1GM/50ML 50 ML IV ONE (02:05)
[2024-11-19] MEDS: CLINDAMYCIN 600MG IV 50 ML IV SCH (02:30)
[~2024-11-19 19:04] MED LIST: ACET-1882 PO
[2024-11-19 20:15] LABS: Basophils # (auto) 0 10 ^3/uL (0-0.2); Basophils % (auto) 0.2 % (0.0-2.0); Eosinophils # (auto) 0.2 10 ^3/uL (0-0.8); Eosinophils % (auto) 1.4 % (0.0-7.0); Hematocrit 47.7 % (41.0-53.0); Hemoglobin 15.5 g/dL (13.5-17.5); Lymphocytes # (auto) 2.6 10 ^3/uL (0.4-5.4); Lymphocytes % (auto) 19.5 % (10.0-50.0); Mean Corpuscular Hemoglobin 26.3 pg (28.0-32.0); Mean Corpuscular Hgb Conc. 32.5 g/dL (32.0-36.0); Monocytes # (auto) 1.7 10 ^3/uL (0-1.3); Monocytes % (auto) 12.6 % (0.0-12.0); Neutrophils # (auto) 8.7 10 ^3/uL (1.6-8.6); Neutrophils % (auto) 66.3 % (37.0-80.0); Platelet Count (auto) 351 10^3/uL (140-450); Red Cell Distribution Width 16.4 % (11.8-14.3); White Blood Cell 13.2 10^3/uL (4.4-10.8)
[2024-11-19 20:31] LABS: Chloride 103 mmol/L (98-107); Potassium 3.6 mmol/L (3.5-5.1); Sodium 137 mmol/L (136-145)
[2024-11-19 20:32] LABS: Anion Gap 7 (5-15); Calcium 10.2 mg/dL (8.7-10.4); Carbon Dioxide 27 mmol/L (20-31)
[2024-11-19 20:37] LABS: BUN/Creatinine Ratio 7.2 (10.0-20.0); Glucose 106 mg/dL (74-106)
[2024-11-19 20:40] LABS: Blood Urea Nitrogen 7 mg/dL (9-23)
--- NOTE | 2024-11-19 21:10 | DVH ---
Procedure: CT CT AB PEL WO CON-NO ORAL OR IV 11/19/2024 08:10 PM Indication: Abscess to left perianal/thigh Comparison Study: None Technique: Axial images were obtained and reformatted in coronal and sagittal planes. All CT scans at this medical facility are performed using dose modulation techniques as appropriate t o a performed exam including the following: Automated exposure control was utilized; adjustment of th e MA and/or KV according to patient size; and use of iterative reconstruction technique. CT Dose: CTDI volume is 9 mGy. Dose-length product is 497 mGy*cm FINDINGS: Lower Chest: Unremarkable. Hepatobiliary: Unremarkable. Spleen: Unremarkable. Pancreas: Unremarkable. Adrenal Glands: Unremarkable. tract: The kidneys are normal in size bilaterally without hydronephrosis or nephrolithiasis. The urinary bladder is unremarkable. GI tract: The stomach is grossly normal in appearance. No evidence of small bowel obstruction. The la rge bowel is unremarkable. The appendix is normal. Lymphatics: No mesenteric, retroperitoneal or periportal lymphadenopathy. Vasculature: The abdominal aorta is normal in in caliber. Pelvic Organs: Unremarkable Bones/soft tissues: Left medial gluteal cellulitis with an underlying 2.7 x 2 cm abscess that appears to extend to the external anal sphincter. Other: None. IMPRESSION: 1. Medial left gluteal cellulitis with an underlying ill-defined, approximately 2.7 x 2 cm abscess wh ich seems to extend to the external anal sphincter. Evaluation is very limited without IV contrast.
--- NOTE | 2024-11-19 21:26 | ED.PDOC ---
History of Present Illness(SKN HPI Comments 39-year-old male states he was seen at this hospital for an abscess. Had surgery. Does not remember when he was discharged. States they had been PICC line placed. Says the nurse came out today advised him to come into the emergency department. Says the wound in his his left-sided groin has been draining. Patient states over the last month he was not received any antibiotics via his PICC line. Says the supplies and treatments were not set up yet. Patient says he has been having more pain. He was operated on by Dr. Mojica Chief Complaint: Wound Check Time Seen by MD: 19:31 History of Present Illness: Nurses Notes Allergies: Coded Allergies: NO KNOWN ALLERGIES (Unverified , 10/21/24) Home Meds Active Scripts Acetaminophen (Acetaminophen) 325 Mg Tab, 650 MG PO Q6HP PRN for 10 Days, #80 TAB Prov:MIGUEL ÁNGEL FRANCES RESIDENT 10/27/24 Information Source: Patient Mode of Arrival: Ambulatory Past Medical History PAST MEDICAL HISTORY: Denies Surgical History: Denies all surgeries Family History Family History: Unknown Social History Smoker: Non-Smoker Alcohol: Denies ETOH Use Drugs: Denies Drug Use Lives In: Home Constitutional: reports: fatigue; denies: chills, diaphoresis, fever, malaise, sweats, weakness, others EENTM: denies: blurred vision, double vision, ear bleeding, ear discharge, ear drainage, ear pain, ear ringing, eye pain, eye redness, hearing loss, mouth pain, mouth swelling, nasal discharge, nose bleeding, nose congestion, nose pain, photophobia, tearing, throat pain, throat swelling, voice changes, others Respiratory: denies: cough, hemoptysis, orthopnea, SOB at rest, shortness of breath, SOB with excertion, stridor, wheezing, others Cardiovascular: denies: chest pain, dizzy spells, diaphoresis, Dyspnea on exertion, edema, irregular heart beat, left arm pain, lightheadedness, palpitations, PND, syncope, others Gastrointestinal: denies: abdomen distended, abdominal pain, blood streaked bowels, constipated, diarrhea, dysphagia, difficulty swallowing, hematemesis, melena, nausea, poor appetite, poor fluid intake, rectal bleeding, rectal pain, vomiting, others Genitourinary: denies: burning, dysuria, flank pain, frequency, hematuria, incontinence, penile discharge, penile sore, pain, testicle pain, testicle swelling, urgency, others Neurological: denies: dizziness, fainting, headache, left sided numbness, left sided weakness, numbness, paresthesia, pre-existing deficit, right sided numbness, right sided weakness, seizure, speech problems, tingling, tremors, weakness, others Musculoskeletal: denies: back pain, gout, joint pain, joint swelling, muscle pain, muscle stiffness, neck pain, others Integumetry: reports: wounds; denies: bruises, change in color, change in hair/nails, dryness, laceration, lesions, lumps, rash, others Physical Exam General Appearance: No Apparent Distress, Normal HEENT: Normal ENT Inspection, Pharynx Normal, TMs Normal Neck: Full Range of Motion, Non-Tender, Normal, Normal Inspection Respiratory: Chest Non-Tender, Lungs Clear, No Accessory Muscle Use, No Respiratory Distress, Normal Breath Sounds Cardiovascular: No Edema, No JVD, No Murmur, No Gallop, Normal Peripheral Pulses, Regular Rate/Rhythm Breast Exam: Deferred Gastrointestinal: No Organomegaly, Non Tender, No Pulsatile Mass, Normal Bowel Sounds, Soft Genitalia: Deferred Pelvic: Deferred Rectal: Deferred Extremities: No calf tenderness, Normal capillary refill, Normal inspection, N ormal range of motion, Non-tender, No pedal edema Musculoskeletal : Apperance: Normal Neurologic: Alert, 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 Was a procedure done?: No Differential Diagnosis (INTG) Differential Diagnosis: Cellulitis Differential Diagnosis: Abscess, Cellulitis Abscess: Bacteremia X-Ray, Labs, Meds, VS Vital Signs Date Time Temp Pulse Resp B/P (MAP) Pulse Ox O2 Delivery O2 Flow Rate FiO2 11/19/24 19:36 98.0 96 15 146/89 (108) 99 Lab Test 11/19/24 19:58 Range/Units White Blood Count 13.2 H 4.4-10.8 10^3/uL Red Blood Count 5.90 4.5-5.90 10^6/uL Hemoglobin 15.5 13.5-17.5 g/dL Hematocrit 47.7 41.0-53.0 % Mean Corpuscular Volume 81.0 80.0-100.0 fL Mean Corpuscular Hemoglobin 26.3 L 28.0-32.0 pg Mean Corpuscular Hemoglobin Concent 32.5 32.0-36.0 g/dL Red Cell Distribution Width 16.4 H 11.8-14.3 % Platelet Count 351 140-450 10^3/uL Mean Platelet Volume 7.5 6.9-10.8 fL Neutrophils (%) (Auto) 66.3 37.0-80.0 % Lymphocytes (%) (Auto) 19.5 10.0-50.0 % Monocytes (%) (Auto) 12.6 H 0.0-12.0 % Eosinophils (%) (Auto) 1.4 0.0-7.0 % Basophils (%) (Auto) 0.2 0.0-2.0 % Neutrophils # (Auto) 8.7 H 1.6-8.6 10 ^3/uL Lymphocytes # (Auto) 2.6 0.4-5.4 10 ^3/uL Monocytes # (Auto) 1.7 H 0-1.3 10 ^3/uL Eosinophils # (Auto) 0.2 0-0.8 10 ^3/uL Basophils # (Auto) 0 0-0.2 10 ^3/uL Nucleated Red Blood Cells 0.0 % Sodium Level 137 136-145 mmol/L Potassium Level 3.6 3.5-5.1 mmol/L Chloride Level 103 98-107 mmol/L Carbon Dioxide Level 27 20-31 mmol/L Anion Gap 7 5-15 Blood Urea Nitrogen 7 L 9-23 mg/dL Creatinine 0.97 0.700-1.30 mg/dL Glomerular Filtration Rate Calc 103 >90 mL/min BUN/Creatinine Ratio 7.2 L 10.0-20.0 Serum Glucose 106 74-106 mg/dL Lactic Acid Level 1.3 0.4-2.0 mmol/L Calcium Level 10.2 8.7-10.4 mg/dL X-Ray, Labs, Meds, VS Comment Patient will be admitted for follow up with Dr. Smith. CT scan shows abscess that does strain towards the anal sphincter Patient will be started on Ancef Blood cultures sent out Time of 1ST Reevaluation: 21:22 Reevaluation 1ST: Unchanged Patient Education/Counseling: Diagnosis, Treatment Family Education/Counseling: Diagnosis, Treatment Departure 1 Departure Time of Disposition: 21:26 Impression: Primary Impression: Perineal abscess Additional Impression: Thigh abscess Disposition: 09 ADMITTED INPATIENT Condition: Stable Discharged With: Self Critical Care Note Critical Care Time?: No Stability Stability form required: No Heart Score Heart Score: Heart Score Response (Comments) Value History N/A 0 EKG N/A 0 Age N/A 0 Risk Factors N/A 0 Troponin N/A 0 Total 0 BENJAMIN ALMONTEP Nov 19, 2024 21:26
[2024-11-19] MEDS ORDERED: HYDROcodone-ACET 5/325MG TAB PO PRN (22:15)
[2024-11-19] MEDS ORDERED: ONDANSETRON HCL 4 MG/2 ML VIAL IV PRN (22:15)
[2024-11-19] MEDS ORDERED: ACETAMINOPHEN 325 MG TAB PO PRN (22:15)
--- NOTE | 2024-11-20 00:44 | DVHHP2 ---
History of Present Illness Reason for Visit: Abscess History of Present Illness 39-year-old male presents for evaluation of abscess. Patient was discharged three weeks ago after undergoing abscess drainage of the perianal/thigh abscess. He was sent home with a PICC line and with orders for antibiotics. He states home health never followed up and he did not receive any antibiotics. Today he returns with complaints abscess to the perianal/left thigh area with drainage. Past Medical History Denies Past Surgical History Abscess drainage Family History Noncontributory Smoke: No ALCOHOL: none Drugs: None Lives: Alone Review of Systems Review of Systems Review of systems are currently negative otherwise addressed HPI. Allergies: Coded Allergies: NO KNOWN ALLERGIES (Unverified , 10/21/24) Medications Current Medications Medications Dose Ordered Sig/Julio Route Start Time Stop Time Status Last Admin Dose Admin Ceftriaxone Sodium 50 ml @ 100 mls/hr DAILY@09 IV 11/20/24 09:00 Clindamycin Phosphate 50 ml @ 50 mls/hr Q8HR IV 11/19/24 22:15 Acetaminophen/ Hydrocodone Bitart 1 tab Q4HP PRN PO 11/19/24 22:15 Ondansetron HCl 4 mg Q4HP PRN IV 11/19/24 22:15 Acetaminophen 650 mg Q6HP PRN PO 11/19/24 22:15 Exam Vital Signs Vital Signs Date Time Temp Pulse Resp B/P (MAP) Pulse Ox O2 Delivery O2 Flow Rate FiO2 11/19/24 19:36 98.0 96 15 146/89 (108) 99 Exam Gen: 39-year-old male in mild distress. Skin: Warm, dry, normal color and texture, perianal/left thigh abscess HEENT: Normocephalic atraumatic, mucous membranes moist and pink. Neck: Cervical and supraclavicular nodes normal without enlargement, trachea is midline, thyroid gland is normal without masses. Pulmonary: Clear to auscultation and percussion bilaterally. Cardiac: Regular rate and rhythm. No murmur Abdomen: Soft, nontender, nondistended, bowel sounds present all 4 quadrants, no guarding, no rigidity, no organomegaly. Extremities: No cyanosis, clubbing, no edema Neuro: Cranial nerves II through XII grossly intact, normal affect and speech, no focal motor deficits. Labs/Xrays ORDERING PHYSICIAN: BENJAMIN ALMONTE PROCEDURE(s): ABPL - CT AB PEL WO CON-NO ORAL OR IV REASON: Abscess to left perianal/thigh ORDER NUMBER(s): [id number], ACCESSION NUMBER(s): [id number] Procedure: CT CT AB PEL WO CON-NO ORAL OR IV 11/19/2024 08:10 PM Indication: Abscess to left perianal/thigh Comparison Study: None Technique: Axial images were obtained and reformatted in coronal and sagittal planes. All CT scans at this medical facility are performed using dose modulation techniques as appropriate to a performed exam including the following: Automated exposure control was utilized; adjustment of the MA and/or KV according to patient size; and use of iterative reconstruction technique. CT Dose: CTDI volume is 9 mGy. Dose-length product is 497 mGy*cm FINDINGS: Lower Chest: Unremarkable. Hepatobiliary: Unremarkable. Spleen: Unremarkable. Pancreas: Unremarkable. Adrenal Glands: Unremarkable. tract: The kidneys are normal in size bilaterally without hydronephrosis or nephrolithiasis. The urinary bladder is unremarkable. GI tract: The stomach is grossly normal in appearance. No evidence of small bowel obstruction. The large bowel is unremarkable. The appendix is normal. Lymphatics: No mesenteric, retroperitoneal or periportal lymphadenopathy. Vasculature: The abdominal aorta is normal in in caliber. Pelvic Organs: Unremarkable Bones/soft tissues: Left medial gluteal cellulitis with an underlying 2.7 x 2 cm abscess that appears to extend to the external anal sphincter. Other: None. IMPRESSION: 1. Medial left gluteal cellulitis with an underlying ill-defined, approximately 2.7 x 2 cm abscess which seems to extend to the external anal sphincter. Evaluation is very limited without IV contrast. Labs Test 11/19/24 19:58 Range/Units White Blood Count 13.2 H 4.4-10.8 10^3/uL Red Blood Count 5.90 4.5-5.90 10^6/uL Hemoglobin 15.5 13.5-17.5 g/dL Hematocrit 47.7 41.0-53.0 % Mean Corpuscular Volume 81.0 80.0-100.0 fL Mean Corpuscular Hemoglobin 26.3 L 28.0-32.0 pg Mean Corpuscular Hemoglobin Concent 32.5 32.0-36.0 g/dL Red Cell Distribution Width 16.4 H 11.8-14.3 % Platelet Count 351 140-450 10^3/uL Mean Platelet Volume 7.5 6.9-10.8 fL Neutrophils (%) (Auto) 66.3 37.0-80.0 % Lymphocytes (%) (Auto) 19.5 10.0-50.0 % Monocytes (%) (Auto) 12.6 H 0.0-12.0 % Eosinophils (%) (Auto) 1.4 0.0-7.0 % Basophils (%) (Auto) 0.2 0.0-2.0 % Neutrophils # (Auto) 8.7 H 1.6-8.6 10 ^3/uL Lymphocytes # (Auto) 2.6 0.4-5.4 10 ^3/uL Monocytes # (Auto) 1.7 H 0-1.3 10 ^3/uL Eosinophils # (Auto) 0.2 0-0.8 10 ^3/uL Basophils # (Auto) 0 0-0.2 10 ^3/uL Nucleated Red Blood Cells 0.0 % Sodium Level 137 136-145 mmol/L Potassium Level 3.6 3.5-5.1 mmol/L Chloride Level 103 98-107 mmol/L Carbon Dioxide Level 27 20-31 mmol/L Anion Gap 7 5-15 Blood Urea Nitrogen 7 L 9-23 mg/dL Creatinine 0.97 0.700-1.30 mg/dL Glomerular Filtration Rate Calc 103 >90 mL/min BUN/Creatinine Ratio 7.2 L 10.0-20.0 Serum Glucose 106 74-106 mg/dL Lactic Acid Level 1.3 0.4-2.0 mmol/L Calcium Level 10.2 8.7-10.4 mg/dL Assessment/Plan Assessment/Plan Assessment Perianal -thigh abscess Leukocytosis Noncompliant Plan Admit the patient to [facility] to the hospitalist Surgical consultation Rocephin/clindamycin Pain management Continue treatment per orders Plan discussed with: Patient My Orders Orders - CAMARENAKATERINMINERVA AGACNP Procedure Category Date Status Time Ceftriaxone 1gm/50ml PHA 11/20/24 In Process D5w (Rocephin) 09:00 Clindamycin 600mg Iv PHA 11/19/24 In Process (Cleocin Iv) 22:15 Wound Culture W/ Gs RYDER 11/19/24 Logged 22:14 Regular Diet DIET 11/20/24 Transmitted Breakfast Basic Metabolic Panel LAB 11/20/24 Logged 04:00 Admit ADMIT 11/19/24 Transmitted 22:14 Hydrocodone-Acet PHA 11/19/24 In Process 5/325mg Tab ([place] 22:15 Ondansetron Hcl PHA 11/19/24 In Process (Zofran) 22:15 Complete Blood Count LAB 11/20/24 Logged 04:00 Condition: Stable ALESSANDRO 11/19/24 In Process 22:14 Acetaminophen Tablet PHA 11/19/24 In Process (Tylenol Tablet) 22:15 Bedrest With Bathroom ALESSANDRO 11/19/24 In Process Privileg 22:14 Date of Service: Nov 19, 2024 Billing Provider: KATERIN CAMARENA Common Visit Codes: [id number] INP/OBS CARE (MOD) KATERIN CAMARENA Nov 20, 2024 00:44
[2024-11-20 02:06] VITALS: PULSE 80; RESP 16; O2SAT 97
[2024-11-20 04:16] VITALS: BP 122/72; PULSE 82; RESP 18; TEMP 97.4; O2SAT 100; O2SAT 99
[2024-11-20 09:00] VITALS: BP 110/65; PULSE 89; RESP 17; TEMP 98.2; O2SAT 100
[2024-11-20] MEDS: cefTRIAXone 1GM/50ML D5W 50 ML IV SCH (09:40)
[2024-11-20 10:55] LABS: Basophils # (auto) 0 10 ^3/uL (0-0.2); Basophils % (auto) 0.2 % (0.0-2.0); Eosinophils # (auto) 0.1 10 ^3/uL (0-0.8); Hemoglobin 13.3 g/dL (13.5-17.5); Lymphocytes # (auto) 1.9 10 ^3/uL (0.4-5.4); Lymphocytes % (auto) 16.1 % (10.0-50.0); Monocytes % (auto) 13.8 % (0.0-12.0); Neutrophils # (auto) 8.2 10 ^3/uL (1.6-8.6); White Blood Cell 11.9 10^3/uL (4.4-10.8)
[2024-11-20 10:59] LABS: Hematocrit 40.6 % (41.0-53.0); Mean Corpuscular Hemoglobin 26.5 pg (28.0-32.0); Mean Corpuscular Hgb Conc. 32.7 g/dL (32.0-36.0); Monocytes # (auto) 1.7 10 ^3/uL (0-1.3); Neutrophils % (auto) 68.9 % (37.0-80.0); Platelet Count (auto) 307 10^3/uL (140-450); Red Blood Cells 5.02 10^6/uL (4.5-5.90); Red Cell Distribution Width 16.7 % (11.8-14.3)
[2024-11-20 11:05] LABS: Anion Gap 7 (5-15); Calcium 9.7 mg/dL (8.7-10.4); Carbon Dioxide 28 mmol/L (20-31); Chloride 103 mmol/L (98-107); Potassium 3.7 mmol/L (3.5-5.1); Sodium 138 mmol/L (136-145)
[2024-11-20 11:11] LABS: BUN/Creatinine Ratio 9.7 (10.0-20.0); Blood Urea Nitrogen 9 mg/dL (9-23)
[2024-11-20 11:15] LABS: Glucose 109 mg/dL (74-106)
[2024-11-20 12:53] VITALS: BP 116/64; PULSE 70; RESP 17; TEMP 98.4; O2SAT 98
--- NOTE | 2024-11-20 13:14 | DVHPN2 ---
Reviewed: Care Plan, H&P, Labs, Medications, Previous Orders, Radiology Changes from previous H/P or p: No Changes Objective Vitals Vital Signs Date Time Temp Pulse Resp B/P (MAP) Pulse Ox O2 Delivery O2 Flow Rate FiO2 11/20/24 12:53 98.4 70 17 116/64 (81) 98 98.4 11/20/24 08:05 Room Air* 0 21 Intake/Output Intake and Output 11/20/24 07:00 Intake Total 150 ml Output Total 0 ml Balance 150 ml Intake Oral 0 ml IV Total 150 ml Output Urine Total 0 ml Stool Total 0 ml Medications Current Medications Medications Dose Ordered Sig/Julio Route Start Time Stop Time Status Last Admin Dose Admin Ceftriaxone Sodium 50 ml @ 100 mls/hr DAILY@09 IV 11/20/24 09:00 11/20/24 09:40 100 MLS/HR Clindamycin Phosphate 50 ml @ 50 mls/hr Q8HR IV 11/19/24 22:15 11/20/24 05:42 50 MLS/HR Acetaminophen/ Hydrocodone Bitart 1 tab Q4HP PRN PO 11/19/24 22:15 Ondansetron HCl 4 mg Q4HP PRN IV 11/19/24 22:15 Acetaminophen 650 mg Q6HP PRN PO 11/19/24 22:15 Laboratory Results Laboratory Tests 11/20/24 09:50 Chemistry Test 11/19/24 19:58 11/20/24 09:50 Calcium Level 10.2 mg/dL (8.7-10.4) 9.7 mg/dL (8.7-10.4) Labs and/or images reviewed: Labs reviewed by me, Image(s) reviewed by me Assessment/Plan Assessment/Plan Sepsis secondary to perirectal abscess: Consult for surgeon Dr. Elicia Flores Perirectal and thigh abscess with a recent incision and drainage: Rocephin clindamycin surgical consult, wound cultures 3 cm benign lytic lesion right femur addressed during the previous visit Plan discussed with: Patient Date of Service: Nov 20, 2024 Billing Provider: SHYAM GALEAS MD Common Visit Codes: [id number] INP/OBS CARE(HIGH) SHYAM GALEAS MD Nov 20, 2024 13:13
--- NOTE | 2024-11-20 16:48 | DVHINCON2 ---
Date of service: Nov 20, 2024 Family History: Diabetes mellitus G8 FATHER FH: myocardial infarction G8 MOTHER Allergies: Coded Allergies: NO KNOWN ALLERGIES (Unverified , 10/21/24) Home Meds Active Scripts Acetaminophen (Acetaminophen) 325 Mg Tab, 650 MG PO Q6HP PRN for 10 Days, #80 TAB Prov:MIGUEL ÁNGEL FRANCES RESIDENT 10/27/24 Current Medications Current Medications Medications (Trade) Dose Ordered Sig/Julio Route PRN Reason Start Time Stop Time Status Last Admin Ceftriaxone Sodium 50 ml @ 100 mls/hr DAILY@09 IV 11/20/24 09:00 11/20/24 09:40 Clindamycin Phosphate 50 ml @ 50 mls/hr Q8HR IV 11/19/24 22:15 11/20/24 14:14 Acetaminophen/ Hydrocodone Bitart ([place] 5/325MG Tab) 1 tab Q4HP PRN PO MODERATE PAIN (4-6 PAIN SCALE) 11/19/24 22:15 Ondansetron HCl (Zofran) 4 mg Q4HP PRN IV NAUSEA / VOMITING 11/19/24 22:15 Acetaminophen (Tylenol Tablet) 650 mg Q6HP PRN PO PAIN SCALE 1-3 OR TEMP>100.4 11/19/24 22:15 Vital Signs Vital Signs Date Time Temp Pulse Resp B/P (MAP) Pulse Ox O2 Delivery O2 Flow Rate FiO2 11/20/24 12:53 98.4 70 17 116/64 (81) 98 98.4 11/20/24 08:05 Room Air* 0 21 Labs/Diagnostic Data Labs Test 11/20/24 09:50 11/19/24 19:58 Range/Units White Blood Count 11.9 H 4.4-10.8 10^3/uL Red Blood Count 5.02 4.5-5.90 10^6/uL Hemoglobin 13.3 L 13.5-17.5 g/dL Hematocrit 40.6 #L 41.0-53.0 % Mean Corpuscular Volume 81.0 80.0-100.0 fL Mean Corpuscular Hemoglobin 26.5 L 28.0-32.0 pg Mean Corpuscular Hemoglobin Concent 32.7 32.0-36.0 g/dL Red Cell Distribution Width 16.7 H 11.8-14.3 % Platelet Count 307 140-450 10^3/uL Mean Platelet Volume 7.6 6.9-10.8 fL Neutrophils (%) (Auto) 68.9 37.0-80.0 % Lymphocytes (%) (Auto) 16.1 10.0-50.0 % Monocytes (%) (Auto) 13.8 H 0.0-12.0 % Eosinophils (%) (Auto) 1.0 0.0-7.0 % Basophils (%) (Auto) 0.2 0.0-2.0 % Neutrophils # (Auto) 8.2 1.6-8.6 10 ^3/uL Lymphocytes # (Auto) 1.9 0.4-5.4 10 ^3/uL Monocytes # (Auto) 1.7 H 0-1.3 10 ^3/uL Eosinophils # (Auto) 0.1 0-0.8 10 ^3/uL Basophils # (Auto) 0 0-0.2 10 ^3/uL Nucleated Red Blood Cells 0.0 % Sodium Level 138 136-145 mmol/L Potassium Level 3.7 3.5-5.1 mmol/L Chloride Level 103 98-107 mmol/L Carbon Dioxide Level 28 20-31 mmol/L Anion Gap 7 5-15 Blood Urea Nitrogen 9 9-23 mg/dL Creatinine 0.93 0.700-1.30 mg/dL Glomerular Filtration Rate Calc 108 >90 mL/min BUN/Creatinine Ratio 9.7 L 10.0-20.0 Serum Glucose 109 H 74-106 mg/dL Calcium Level 9.7 8.7-10.4 mg/dL Lactic Acid Level 1.3 0.4-2.0 mmol/L Microbiology Date/Time Source Procedure Growth Status 11/20/24 05:00 Nose MRSA Screen - Final Complete Assessment [id number] R/O LEFT PERIANAL CELLULITIS/ABSCESS CONTINUE IV ABX CLOSE OBSERVATION CONSIDER EMERGENT SURGERY BASED ON ONGOING EVAL Plan discussed with: Patient LAURE SINGLETON MD Nov 20, 2024 16:48
[2024-11-20 17:04] VITALS: BP 125/70; PULSE 69; RESP 18; TEMP 97.9; O2SAT 100
--- NOTE | 2024-11-20 18:59 | DVHINCON2 ---
DATE OF CONSULTATION: 11/20/2024 HISTORY OF PRESENT ILLNESS: This patient is 39-year-old, coming in with pain and drainage from his perianal location, mostly on the left side, and he was discharged 3 weeks' ago after drainage of the perineal and thigh abscess, sent home with a PICC line with ordered for antibiotics, and he never followed up. He did not receive antibiotics, and he returns with the same problem. PAST MEDICAL HISTORY: No diabetes, hypertension. PAST SURGICAL HISTORY: As mentioned above. PHYSICAL EXAMINATION: VITAL SIGNS: On examination, afebrile, stable signs. HEENT: With no evidence of pallor, cyanosis, or jaundice. NECK: Supple, nontender with no thyromegaly or lymphadenopathy. CHEST AND LUNGS: Clear. HEART: Within normal limits. ABDOMEN: Soft. NEUROLOGIC: Not assessed. GENITOURINARY: Perianal examination reveals cellulitis, ongoing infection of his left inner gluteal region. No mature abscess was noted at this point, and CT scan is also suggesting a small possibility of a fluid collection, rule out abscess. PLAN: At this point, he needs conservative management, needs intravenous antibiotics, close observation, and consider emergent surgery based upon ongoing evaluation. MD RALPH Coyle/ARNAV TID: [id number] RECEIPT: [id number] cc: Payam Crow MD
[2024-11-20 21:00] VITALS: BP 119/66; PULSE 84; RESP 18; TEMP 98.4; O2SAT 97
[2024-11-21 01:00] VITALS: BP 135/79; PULSE 75; RESP 18; TEMP 97.2; O2SAT 100
[2024-11-21 05:00] VITALS: BP 125/85; PULSE 75; RESP 18; TEMP 97.2; O2SAT 99
[2024-11-21 09:03] VITALS: BP 133/86; PULSE 71; RESP 16; TEMP 97.3; O2SAT 100
--- NOTE | 2024-11-21 09:03 | DVH ---
CHEST RADIOGRAPH Indication: ASSESS PICC LINE PLACEMENT ARM TO HEART Technique: Single frontal view of the chest was obtained COMPARISON: None FINDINGS: Lines and Tubes: Right PICC in satisfactory position overlying the superior vena cava. Lungs: Clear Pleura: No effusion. No pneumothorax. Cardiomediastinal contours: Unremarkable Bones: Unremarkable IMPRESSION: No acute disease.
--- NOTE | 2024-11-21 09:21 | DVHPN2 ---
Reviewed: Care Plan, H&P, Labs, Medications, Previous Orders, Radiology Changes from previous H/P or p: No Changes Objective Vitals Vital Signs Date Time Temp Pulse Resp B/P (MAP) Pulse Ox O2 Delivery O2 Flow Rate FiO2 11/21/24 09:03 97.3 71 16 133/86 (102) 100 97.3 11/20/24 20:00 Room Air* 0 21 Intake/Output Intake and Output 11/21/24 06:59 Intake Total 1220 ml Output Total 700 ml Balance 520 ml Intake Oral 1020 ml IV Total 200 ml Output Urine Total 700 ml # Voids 2 Medications Current Medications Medications Dose Ordered Sig/Julio Route Start Time Stop Time Status Last Admin Dose Admin Ceftriaxone Sodium 50 ml @ 100 mls/hr DAILY@09 IV 11/20/24 09:00 11/21/24 09:12 100 MLS/HR Clindamycin Phosphate 50 ml @ 50 mls/hr Q8HR IV 11/19/24 22:15 11/21/24 05:04 50 MLS/HR Acetaminophen/ Hydrocodone Bitart 1 tab Q4HP PRN PO 11/19/24 22:15 Ondansetron HCl 4 mg Q4HP PRN IV 11/19/24 22:15 Acetaminophen 650 mg Q6HP PRN PO 11/19/24 22:15 Laboratory Results Laboratory Tests 11/20/24 09:50 Chemistry Test 11/20/24 09:50 Calcium Level 9.7 mg/dL (8.7-10.4) Microbiology Microbiology Date/Time Source Procedure Growth Status 11/20/24 05:00 Nose MRSA Screen - Final Complete 11/19/24 19:58 Blood Blood Culture - Preliminary NO GROWTH AFTER 24 HOURS OF INCUBATION. Resulted Labs and/or images reviewed: Labs reviewed by me, Image(s) reviewed by me Assessment/Plan Assessment/Plan Sepsis secondary to perirectal abscess: Consult for surgeon Dr. Elicia Flores appreciated, advised IV antibiotics Perirectal and thigh abscess with recent incision and drainage: Rocephin clindamycin surgical consult, wound cultures 3 cm benign lytic lesion right femur addressed during the previous visit PICC line ordered Plan discussed with: Patient My Orders Orders - SHYAM GALEAS MD Procedure Category Date Status Time * Surgical Consult CONS 11/20/24 Transmitted 14:50 Cover Wound With Dry ALESSANDRO 11/20/24 In Process Dressing 15:44 * Picc Line Consult CONS 11/20/24 Transmitted 19:22 Rt Upper Dvt US 11/21/24 Taken 08:37 Chest Portable XY 11/21/24 Resulted 08:43 Date of Service: Nov 21, 2024 Billing Provider: SHYAM GALEAS MD Common Visit Codes: [id number] INP/OBS CARE(HIGH) SHYAM GALEAS MD Nov 21, 2024 09:21
--- NOTE | 2024-11-21 09:35 | DVH ---
Upper Extremity Venous Duplex Clinical History: Right arm swelling with PICC line Comparison: None Technique: Duplex Doppler evaluation of the venous system of the RIGHT lower neck and upper extremity including color Doppler and spectral/pulsed waveform analysis was performed. Findings: The internal jugular vein demonstrates appropriate compressibility and waveform variability. The subclavian vein is not compressible. The visualized portion of the brachiocephalic vein is not compressible. The axillary vein demonstrates is not compressible. The brachial veins demonstrate appropriate compressibility and patency on Doppler evaluation. The basilic vein demonstrates appropriate compressibility and patency on Doppler evaluation. The cephalic vein demonstrates appropriate compressibility and patency on Doppler evaluation. Impression: Occlusive thrombus in the right subclavian vein, cephalic vein, and brachial vein.
[2024-11-21 11:26] LABS: INR 1.01 (0.9-1.15); Partial Thromboplastin Time 24.5 SEC (24.5-34.5); Prothrombin Time 10.7 sec (9.3-11.8)
[2024-11-21 13:00] VITALS: BP 138/87; PULSE 80; RESP 17; TEMP 98.1; O2SAT 96
[2024-11-21 17:00] VITALS: BP 127/88; PULSE 66; RESP 18; TEMP 98; O2SAT 97
[2024-11-21] MEDS: LIDOCAINE 1% (LOCAL ANESTH.) PF 5ml SDV ID ONE (17:47)
[2024-11-21 21:00] VITALS: BP 139/72; PULSE 72; RESP 12; TEMP 97.9; O2SAT 98
[2024-11-21] MEDS ORDERED: APIXABAN 5 MG TAB PO SCH (22:00)
[2024-11-21] MEDS: APIXABAN 5 MG TAB PO SCH (22:18)
[2024-11-21] MEDS: SODIUM CHLOR 0.9% PF (SALINE LOCK) 10ML VIAL/SYR IV SCH (22:19)
[2024-11-22 01:00] VITALS: BP 138/92; PULSE 60; RESP 16; TEMP 98.1; O2SAT 99
[2024-11-22 05:00] VITALS: BP 130/88; PULSE 61; RESP 14; TEMP 97.8; O2SAT 99
[2024-11-22 08:30] VITALS: BP 134/84; PULSE 75; RESP 16; TEMP 97.7; O2SAT 99
--- NOTE | 2024-11-22 09:37 | DVHPN2 ---
Reviewed: Care Plan, H&P, Labs, Medications, Previous Orders, Radiology Changes from previous H/P or p: No Changes Objective Vitals Vital Signs Date Time Temp Pulse Resp B/P (MAP) Pulse Ox O2 Delivery O2 Flow Rate FiO2 11/22/24 08:30 97.7 75 16 134/84 (101) 99 97.7 11/21/24 20:00 Room Air* 0 21 Intake/Output Intake and Output 11/22/24 07:00 Intake Total 2353 ml Output Total 1620 ml Balance 733 ml Intake Oral 2153 ml IV Total 200 ml Output Urine Total 1620 ml # Bowel Movements 2 Medications Current Medications Medications Dose Ordered Sig/Julio Route Start Time Stop Time Status Last Admin Dose Admin Ceftriaxone Sodium 50 ml @ 100 mls/hr DAILY@09 IV 11/20/24 09:00 11/22/24 09:13 100 MLS/HR Clindamycin Phosphate 50 ml @ 50 mls/hr Q8HR IV 11/19/24 22:15 11/22/24 05:52 50 MLS/HR Acetaminophen/ Hydrocodone Bitart 1 tab Q4HP PRN PO 11/19/24 22:15 Ondansetron HCl 4 mg Q4HP PRN IV 11/19/24 22:15 Acetaminophen 650 mg Q6HP PRN PO 11/19/24 22:15 Apixaban 10 mg BID PO 11/21/24 22:00 11/28/24 21:59 11/22/24 09:13 10 MG Apixaban 5 mg BID PO 11/29/24 10:00 Sodium Chloride 10 ml QSHIFT@,22 IV 11/21/24 22:00 11/22/24 09:13 10 ML Laboratory Results Laboratory Tests 11/20/24 09:50 Coagulation Test 11/21/24 10:50 Prothrombin Time 10.7 sec (9.3-11.8) Prothrombin Time INR 1.01 (0.9-1.15) Activated Partial Thromboplast Time 24.5 SEC (24.5-34.5) Microbiology Microbiology Date/Time Source Procedure Growth Status 11/20/24 05:00 Nose MRSA Screen - Final Complete 11/19/24 19:58 Blood Blood Culture - Preliminary NO GROWTH AFTER 48 HOURS OF INCUBATION. Resulted Labs and/or images reviewed: Labs reviewed by me, Image(s) reviewed by me Assessment/Plan Assessment/Plan Sepsis secondary to perirectal abscess: Consult for surgeon Dr. Elicia Flores appreciated, advised IV antibiotics Perirectal and thigh abscess with recent incision and drainage: Rocephin clindamycin surgical consult, 3 cm benign lytic lesion right femur addressed during the previous visit PICC line in place to the left upper arm DVT right upper arm: Eliquis [facility] for one month Plan discussed with: Patient My Orders Orders - SHYAM GALEAS MD Procedure Category Date Status Time * Supervisor Road Administrator CONS 11/21/24 Transmitted Consult 09:33 Apixaban (Eliquis) PHA 11/21/24 In Process 22:00 Apixaban (Eliquis) PHA 11/29/24 In Process 10:00 Nursing Protocol Picc ALESSANDRO 11/21/24 In Process 16:50 Change Dressing Prn ALESSANDRO 11/21/24 In Process 16:50 Sodium Chloride Lock PHA 11/21/24 In Process (Saline Lock Ns) 22:00 Do Not Use Picc For ALESSANDRO 11/21/24 In Process Blood Cult 16:50 May Draw Blood From ALESSANDRO 11/21/24 In Process Picc 16:50 Ok To Use Picc ALESSANDRO 11/21/24 In Process 16:50 Change Picc Dressing ALESSANDRO 11/21/24 In Process Q7 Days 16:50 D/C Picc Line ORDERS 11/21/24 Transmitted 18:00 Date of Service: Nov 22, 2024 Billing Provider: SHYAM GALEAS MD Common Visit Codes: [id number] INP/OBS CARE(HIGH) SHYAM GALEAS MD Nov 22, 2024 09:37
--- NOTE | 2024-11-22 09:47 | DVHDS2 ---
Discharge Summary Date of Admission Nov 19, 2024 at 22:14 Date of Discharge: Nov 22, 2024 Admitting Diagnosis Perirectal abscess Wounds: Perirectal abscess Labs/Diagnostic Data: Laboratory Results Test 11/21/24 10:50 11/20/24 09:50 11/19/24 19:58 Prothrombin Time 10.7 sec (9.3-11.8) Prothrombin Time INR 1.01 (0.9-1.15) Activated Partial Thromboplast Time 24.5 SEC (24.5-34.5) White Blood Count 11.9 10^3/uL (4.4-10.8) Red Blood Count 5.02 10^6/uL (4.5-5.90) Hemoglobin 13.3 g/dL (13.5-17.5) Hematocrit 40.6 % (41.0-53.0) Mean Corpuscular Volume 81.0 fL (80.0-100.0) Mean Corpuscular Hemoglobin 26.5 pg (28.0-32.0) Mean Corpuscular Hemoglobin Concent 32.7 g/dL (32.0-36.0) Red Cell Distribution Width 16.7 % (11.8-14.3) Platelet Count 307 10^3/uL (140-450) Mean Platelet Volume 7.6 fL (6.9-10.8) Neutrophils (%) (Auto) 68.9 % (37.0-80.0) Lymphocytes (%) (Auto) 16.1 % (10.0-50.0) Monocytes (%) (Auto) 13.8 % (0.0-12.0) Eosinophils (%) (Auto) 1.0 % (0.0-7.0) Basophils (%) (Auto) 0.2 % (0.0-2.0) Neutrophils # (Auto) 8.2 10 ^3/uL (1.6-8.6) Lymphocytes # (Auto) 1.9 10 ^3/uL (0.4-5.4) Monocytes # (Auto) 1.7 10 ^3/uL (0-1.3) Eosinophils # (Auto) 0.1 10 ^3/uL (0-0.8) Basophils # (Auto) 0 10 ^3/uL (0-0.2) Nucleated Red Blood Cells 0.0 % Sodium Level 138 mmol/L (136-145) Potassium Level 3.7 mmol/L (3.5-5.1) Chloride Level 103 mmol/L (98-107) Carbon Dioxide Level 28 mmol/L (20-31) Anion Gap 7 (5-15) Blood Urea Nitrogen 9 mg/dL (9-23) Creatinine 0.93 mg/dL (0.700-1.30) Glomerular Filtration Rate Calc 108 mL/min (>90) BUN/Creatinine Ratio 9.7 (10.0-20.0) Serum Glucose 109 mg/dL (74-106) Calcium Level 9.7 mg/dL (8.7-10.4) Lactic Acid Level 1.3 mmol/L (0.4-2.0) Other Laboratory Tests 11/20/24 09:50 Brief Hx & Hospital Course: 39-year-old male had incision and drainage of the perirectal abscess on 10/22/[address] Borges and was sent home and did not follow-through for home health IV antibiotics and came back with the same complained of pain and tenderness over the perirectal area. Started on Rocephin and clindamycin. Blood cultures negative seen by surgeon Dr. Elicia Flores advised to continue IV antibiotics for one month patient has a 3 cm benign lytic lesion in the right femur which was advised during the previous visit. Patient complained of swelling and tenderness over the right upper arm and venous ultrasound showed DVT and placed on Eliquis. Patient being discharged to longterm facility for IV antibiotics. Rocephin 1 g IV daily for four weeks and clindamycin 300 mg IV q.8 hours for four weeks Consults/Reason for consult Surgeon Dr. Elicia Flores Operations or Procedures CT abdomen pelvis without contrast Condition at Discharge: Fair Final Diagnosis/Problems List Sepsis secondary to perirectal abscess: Consult for surgeon Dr. Elicia Flores appreciated, advised IV antibiotics Perirectal and thigh abscess with recent incision and drainage: Rocephin clindamycin surgical consult, 3 cm benign lytic lesion right femur addressed during the previous visit PICC line in place to the left upper arm DVT right upper arm: Eliquis Discharge Disposition: Detention Facility Discharge Instruct/Medications Diet: Regular Activity: Light activity Follow Up/Referral: Follow up with the halfway Dr Medications: Rocephin 1 g IV daily for four weeks Clindamycin 300 mg IV q.8 hours for four weeks Eliquis 38 (Time taken for discharge summary 38 minutes) Discharge Statement: "Patient was advised to return to the ER or call 911 if any headaches, dizziness, shortness of breath, chest pain, abdominal pain, bleeding, fevers, or worsening of medical condition. Patient was counseled about treatment plan, medications, possible side effects, patientverbalized understanding. All questions were answered to the best of my ability. This discharge took greater then 30 minutes in planning, reviewing documentation, counseling the patient, and discussing with other team members." ASSESSMENT ASSESSMENT Hospital Course Patient is receiving IV antibiotics Assessment Sepsis secondary to perirectal abscess: Consult for surgeon Dr. Elicia Flores appreciated, advised IV antibiotics Perirectal and thigh abscess with recent incision and drainage: Rocephin clindamycin surgical consult, 3 cm benign lytic lesion right femur addressed during the previous visit PICC line in place to the left upper arm DVT right upper arm: Eliquis Date of Service: Nov 22, 2024 Billing Provider: SHYAM GALEAS MD Common Visit Codes: [id number] DISCH DAY >30min SHYAM GALEAS MD Nov 22, 2024 09:47
[2024-11-22 10:58] VITALS: BP 134/84; PULSE 75; RESP 16; TEMP 97.7; O2SAT 99
[2024-11-22 12:13] LABS: COVID19 ANTIGEN SOFIA FIA NEGATIVE (NEGATIVE)
[2024-11-29] MEDS ORDERED: APIXABAN 5 MG TAB PO SCH (10:00)
== END 2024-11-22 14:25 | DRG 254 ==
LOC: ER 19:08 → OVERFLOW 22:14 → CENTRAL 11-20 04:15
PROVIDERS: ADMIT Family Medicine; ATTEND Family Medicine
PROC: 02HV33Z Insertion of Infusion Device into Superior Vena Cava, Percutaneous Approach (ICD-10-PCS; principal; 2024-11-21)
PROC: B548ZZA Ultrasonography of Superior Vena Cava, Guidance (ICD-10-PCS; 2024-11-21)
DX: K61.1 Rectal abscess (principal); I82.621 Acute embolism and thrombosis of deep veins of right upper extremity; L02.215 Cutaneous abscess of perineum; Z20.822 Contact with and (suspected) exposure to COVID-19; Z79.1 Long term (current) use of non-steroidal anti-inflammatories (NSAID); Z79.899 Other long term (current) drug therapy; Z91.199 Patient's noncompliance with other medical treatment and regimen due to unspecified reason; Z83.3 Family history of diabetes mellitus; Z82.49 Family history of ischemic heart disease and other diseases of the circulatory system
CPT/HCPCS: 36415; 36569; 71045; 74176; 76937; 80048; 83605; 85025; 85610; 85730; 87040; 87081; 87426; 93971; 96365; G0378; J3490